=== PATIENT | female | born 1960 | race Caucasian/White ===

== ENCOUNTER → 2016-05-12 | Outpatient (CLI) | payer OTHER | LOC: YCFC.O 12:38 | PROVIDERS: ATTEND Nurse Practitioner Family | DX: K14.9 Disease of tongue, unspecified (principal); L65.9 Nonscarring hair loss, unspecified ==

== ENCOUNTER 2016-05-28 19:09 | Emergency (ER) | payer OTHER ==
[2016-05-28 19:35] VITALS: BP 114/79; TEMP 100.6
[2016-05-28] MEDS ORDERED: OSELTAMIVIR 75 MG CAP PO ONE ×2 (20:11→21:50)
[2016-05-28] MEDS ORDERED: IPRATROPIUM/ALBUTEROL 3 ML VIAL NEB ONE (20:16)
[2016-05-28] MEDS ORDERED: predniSONE 20 MG TAB PO ONE (20:16)
--- NOTE | 2016-05-28 20:27 | ED.PDOC ---
History of Present Illness - General Chief Complaint: Respiratory Problem Stated Complaint: cough and congestion [id number] Time Seen by Provider: 05/28/16 20:24 Source: patient Exam Limitations: no limitations - History of Present Illness Initial Comments: She stated that she has history of bronchial asthma and with non productive cough for 2 weeks then yesterday started having fever with cough more often despite bronchodilator with b-agonist. Severity: moderate Improving Factors: nothing Worsening Factors: nothing Associated Symptoms: cough, fever/chills Allergies/Adverse Reactions: Allergies Codeine Allergy (Mild, Verified 05/05/14 14:23) Other itching Home Medications: Ambulatory Orders Tramadol HCl 50 mg PO Q6HR PRN 01/31/13 Trazodone HCl 300 mg PO HS 01/31/13 Venlafaxine Xr [Effexor Xr] 150 mg PO DAILY 01/31/13 Fluticasone/Salmeterol 250/50 [Advair 250/50 Diskus] 1 puff INH BID 11/05/13 Estropipate 1.5 mg PO BID 02/23/14 Furosemide 40 mg PO DAILY 02/23/14 Mometasone Furoate Nasal [place] [Nasonex Nasal [place]] 1 spray BNAS BID 03/07/14 Montelukast Sodium [Singulair] 10 mg PO DAILY 03/07/14 Albuterol Inhaler [Ventolin Hfa Inhaler] 108 mcg IN PRN PRN 05/05/14 Carbamazepine [Tegretol] 400 mg PO BID 05/05/14 Multiple Vitamins W/ Minerals [Alive Womens 50+] 1 tab PO DAILY 05/05/14 Multiple Vitamins W/ Minerals [Thrive For Life Womens] 1 tab PO DAILY 05/12/15 Phentermine HCl 37.5 mg PO DAILY 05/12/15 Levofloxacin [Levaquin] 500 mg PO DAILY #5 tab 07/27/15 Cefuroxime Axetil [Ceftin] 500 mg PO BID #14 tab 05/28/16 Oseltamivir Phosphate [Tamiflu] 75 mg PO BID #10 cap 05/28/16 Tramadol HCl 50 mg PO TID PRN #20 tab 05/28/16 Review of Systems - Review of Systems Constitutional: States: fever EENTM: States: no symptoms reported Respiratory: States: cough - non productive Cardiology: States: no symptoms reported Gastrointestinal/Abdominal: States: no symptoms reported Genitourinary: States: no symptoms reported Musculoskeletal: States: joint pain Skin: States: no symptoms reported Neurological: States: no symptoms reported Endocrine: States: no symptoms reported Hematologic/Lymphatic: States: no symptoms reported Past Medical History (General) - Patient Medical History Hx Seizures: No Hx Stroke: No Hx Dementia: No Hx Asthma: Yes Hx of COPD: Yes Hx Cardiac Disorders: No Hx Congestive Heart Failure: No Hx Pacemaker: No Hx Hypertension: Yes Hx Thyroid Disease: No Hx Diabetes: No Hx Gastroesophageal Reflux: Yes Hx Renal Disease: No Hx Cancer: No Hx of HIV: No Hx Hepatitis C: No Hx MRSA: No Surgical History: tonsillectomy, Hysterectomy, other Other Surgeries:: hysterectomy - Vaccination History Hx Tetanus, Diphtheria Vaccination: No Hx Influenza Vaccination: No Hx Pneumococcal Vaccination: Yes - Social History Hx Tobacco Use: No Hx Chewing Tobacco Use: No Hx Alcohol Use: No Hx Substance Use: No Hx Substance Use Treatment: No Hx Depression: No Hx Physical Abuse: No Hx Emotional Abuse: No Hx Suspected Abuse: No - Female History Patient is a Female of Child Bearing Age (10 -59 yrs old): No Patient : No Family Medical History - Family History Father Family History: Unknown Living Status: Hx Family Congestive Heart Failure: Yes - dad Hx Family;Other: Father had a CAD; CABG Physical Exam - Physical Exam General Appearance: Alert, Comfortable, No apparent distress Eye Exam: bilateral normal Ears, Nose, Throat: hearing grossly normal, normal ENT inspection, normal pharynx Neck: non-tender, full range of motion, supple, normal inspection Respiratory: chest non-tender, lungs clear, normal breath sounds, no respiratory distress Cardiovascular/Chest: normal peripheral pulses, regular rate, rhythm, no edema, no gallop, no murmur Peripheral Pulses: radial,right: 2+, radial,left: 2+ Gastrointestinal/Abdominal: normal bowel sounds, non tender, soft, no organomegaly Back Exam: normal inspection, no CVA tenderness, no vertebral tenderness Extremity: normal range of motion, non-tender, no pedal edema, no calf tenderness Neurologic: no motor/sensory deficits, alert, normal mood/affect Skin Exam: normal color, warm/dry Progress - Progress Progress: 05/28/16 21:49 positive flu a - Results/Orders Results/Orders: 05/28/16 19:45 STREP A SCREEN CULTURE Stat 05/28/16 20:16 SVN/Updraft Therapy ONCE Laboratory Results WBC 5.7 K/mm3 (4.8-10.8) 05/28/16 20:40 RBC 4.73 M/mm3 (4.20-5.40) 05/28/16 20:40 Hgb 14.3 gm/dL (12.0-16.0) 05/28/16 20:40 Hct 43.5 % (36.0-47.0) 05/28/16 20:40 MCV 91.8 fl (81.0-99.0) 05/28/16 20:40 MCH 30.3 pg (27.0-31.0) 05/28/16 20:40 MCHC 33.0 g/dL (33.0-37.0) 05/28/16 20:40 RDW 13.2 % (11.5-14.5) 05/28/16 20:40 Plt Count 246 K/mm3 (130-400) 05/28/16 20:40 MPV 7.6 fl (7.40-10.4) 05/28/16 20:40 Absolute Neuts (auto) 3.60 K/uL (1.8-6.8) 05/28/16 20:40 Absolute Lymphs (auto) 1.50 K/uL (1.0-3.4) 05/28/16 20:40 Absolute Monos (auto) 0.50 K/uL (0.2-0.8) 05/28/16 20:40 Absolute Eos (auto) 0.10 K/uL (0.0-0.4) 05/28/16 20:40 Absolute Basos (auto) 0.10 K/uL (0.0-0.1) 05/28/16 20:40 Neutrophils % 63.7 % (42.0-78.0) 05/28/16 20:40 Lymphocytes % 25.8 % (20.0-50.0) 05/28/16 20:40 Monocytes % 8.0 % (2.0-9.0) 05/28/16 20:40 Eosinophils % 1.3 % (1.0-5.0) 05/28/16 20:40 Basophils % 1.2 % (0.0-2.0) 05/28/16 20:40 Sodium 142 mmol/L (135-145) 05/28/16 20:40 Potassium 3.7 mmol/L (3.6-5.0) 05/28/16 20:40 Chloride 110 mmol/L (101-111) 05/28/16 20:40 Carbon Dioxide 27 mmol/L (21-31) 05/28/16 20:40 Anion Gap 8.7 (12-18) L 05/28/16 20:40 BUN 16 mg/dL (7-18) 05/28/16 20:40 Creatinine 0.91 mg/dL (0.6-1.3) 05/28/16 20:40 BUN/Creatinine Ratio 17.6 (10-20) 05/28/16 20:40 Random Glucose 109 mg/dL (70-105) H 05/28/16 20:40 Serum Osmolality 284.9 mOsm/L (275-295) 05/28/16 20:40 Lactic Acid 1.6 mmol/L (0.5-2.2) 05/28/16 20:40 Calcium 8.9 mg/dL (8.4-10.2) 05/28/16 20:40 Total Bilirubin 0.5 mg/dL (0.2-1.0) 05/28/16 20:40 AST 19 IU/L (10-42) 05/28/16 20:40 ALT 19 IU/L (10-60) 05/28/16 20:40 Alkaline Phosphatase 123 IU/L (42-121) H 05/28/16 20:40 Serum Total Protein 6.8 gm/dL (6.4-8.2) 05/28/16 20:40 Albumin 3.8 g/dl (3.2-5.5) 05/28/16 20:40 Globulin 3.0 gm/dL (2.3-3.5) 05/28/16 20:40 Albumin/Globulin Ratio 1.3 (1.1-1.9) 05/28/16 20:40 - EKG/XRAY/CT XRAY: chest - no acute abnormality noted Departure - Departure Clinical Impression: Influenza A H1N1 infection, History of asthma Time of Disposition: 21:52 Disposition: Discharge to Home or Self Care Condition: Good Departure Forms: ED Discharge - Pt. Copy, Patient Portal Self Enrollment Instructions: DI for Influenza -- Adult Prescriptions: Cefuroxime Axetil [Ceftin] 500 mg PO BID #14 tab Oseltamivir Phosphate [Tamiflu] 75 mg PO BID #10 cap Tramadol HCl 50 mg PO TID PRN #20 tab PRN Reason: Pain -- Generalized Home Medications: Ambulatory Orders Tramadol HCl 50 mg PO Q6HR PRN 01/31/13 Trazodone HCl 300 mg PO HS 01/31/13 Venlafaxine Xr [Effexor Xr] 150 mg PO DAILY 01/31/13 Fluticasone/Salmeterol 250/50 [Advair 250/50 Diskus] 1 puff INH BID 11/05/13 Estropipate 1.5 mg PO BID 02/23/14 Furosemide 40 mg PO DAILY 02/23/14 Mometasone Furoate Nasal [place] [Nasonex Nasal [place]] 1 spray BNAS BID 03/07/14 Montelukast Sodium [Singulair] 10 mg PO DAILY 03/07/14 Albuterol Inhaler [Ventolin Hfa Inhaler] 108 mcg IN PRN PRN 05/05/14 Carbamazepine [Tegretol] 400 mg PO BID 05/05/14 Multiple Vitamins W/ Minerals [Alive Womens 50+] 1 tab PO DAILY 05/05/14 Multiple Vitamins W/ Minerals [Thrive For Life Womens] 1 tab PO DAILY 05/12/15 Phentermine HCl 37.5 mg PO DAILY 05/12/15 Levofloxacin [Levaquin] 500 mg PO DAILY #5 tab 07/27/15 Cefuroxime Axetil [Ceftin] 500 mg PO BID #14 tab 05/28/16 Oseltamivir Phosphate [Tamiflu] 75 mg PO BID #10 cap 05/28/16 Tramadol HCl 50 mg PO TID PRN #20 tab 05/28/16 Additional Instructions: RETURN TO EMERGENCY ROOM NEEDED;CONTINUE WITH HOME MEDICATIONS
--- NOTE | 2016-05-28 21:04 | RAD ---
EXAM DESCRIPTION: XR CHEST 1 VIEW CLINICAL HISTORY: 55-year-old female with cough. COMPARISON: 08/03/2015. TECHNIQUE: Single AP view of the chest was obtained portably. FINDINGS: The cardiac mediastinal silhouette is within normal limits. Heart size is normal. The lungs are clear without discrete focal opacity, pleural effusion or pneumothorax. The osseous structures are within normal limits. IMPRESSION: No acute cardiopulmonary abnormalities. Electronically signed by: Jaquelin Carrizales MD 05/28/2016 21:02
[2016-05-28 21:16] VITALS: O2SAT 96
[2016-05-28] MEDS ORDERED: CEFUROXIME AXETIL TAB 250 MG TAB PO ONE (21:51)
== END 2016-05-28 22:30 | disposition home or self-care (01) ==
LOC: ER 19:09
DX: J10.1 Influenza due to other identified influenza virus with other respiratory manifestations (principal); Z87.09 Personal history of other diseases of the respiratory system; J44.9 Chronic obstructive pulmonary disease, unspecified; I10 Essential (primary) hypertension; K21.9 Gastro-esophageal reflux disease without esophagitis; Z79.899 Other long term (current) drug therapy; Z88.6 Allergy status to analgesic agent; Z82.49 Family history of ischemic heart disease and other diseases of the circulatory system
CPT/HCPCS: 36415; 71010; 80053; 83605; 85025; 87070; 87502; 87651; 94640; J7512; J7620

== ENCOUNTER → 2016-09-08 | Outpatient (CLI) | payer OTHER ==
--- NOTE | 2016-09-09 10:13 | RAD ---
One view abdomen. Indication: ABDOMINAL PAIN Comparison: None. Impression: Bowel gas pattern nonspecific. No abnormal calcifications. No acute osseous abnormality. Electronically signed by: Jerry Cerda MD 09/09/2016 10:13 AM CDT
== END ==
LOC: YCFC.O 11:16
PROVIDERS: ATTEND Nurse Practitioner Family
DX: R10.9 Unspecified abdominal pain (principal)

== ENCOUNTER → 2016-09-16 | Outpatient (CLI) | payer OTHER ==
--- NOTE | 2016-09-17 05:10 | CT ---
Procedure: CT ABDOMEN PELVIS WITHOUT IV CONTRAST Exam Date: 09/16/2016 Ordering Provider: STEPHANI CEJA Clinical Indication: ADRENAL ADENOMA Comparison: 09/05/2014 TECHNIQUE: Unenhanced 5 mm images were taken through the abdomen and pelvis without the administration of oral contrast material. Coronal and sagittal reformatted images were generated. This exam was performed according to our departmental dose optimization program which includes use of automated exposure control, adjustment of the mA and/or kV according to patient size and/or use of iterative reconstruction technique. FINDINGS: Lower chest: Nonacute Abdomen: Liver and biliary system: No gross liver lesions on this noncontrast examination. No biliary ductal dilatation. No calcified gallstones. Spleen: Unremarkable Pancreas: Unremarkable Adrenal glands: Stable 1 cm lipid rich left adrenal adenoma. Right adrenal gland is unremarkable. Kidneys: No contour deforming renal lesions on this noncontrast examination. No hydronephrosis in either kidney. Lymph nodes: No lymphadenopathy. Retroperitoneum, peritoneal cavity, abdominal wall : No ascites. No free intraperitoneal air. Small fat-containing inguinal hernias bilaterally. Vessels: No abdominal aortic aneurysm. Pelvis: Lymph nodes: No lymphadenopathy Peritoneal cavity: No pelvic free fluid Bowel: No bowel obstruction. Colonic diverticulosis without evidence of diverticulitis. No findings to suggest acute appendicitis. No bowel wall thickening. Bladder: Decompressed Pelvic organs: Prior hysterectomy Bones: Nonacute IMPRESSION: 1. No acute abnormalities in the abdomen or pelvis. 2. Stable lipid rich left adrenal adenoma. 3. Colonic diverticulosis without evidence of diverticulitis. Electronically signed by: Brenton Mckinley MD 09/17/2016 5:10 AM CDT
== END | disposition home or self-care (01) ==
LOC: CT 10:06
PROVIDERS: ATTEND Internal Medicine Endocrinology, Diabetes & Metabolism
DX: D35.00 Benign neoplasm of unspecified adrenal gland (principal)

== ENCOUNTER 2016-10-06 21:06 | Emergency (ER) | payer OTHER ==
[2016-10-06 21:30] VITALS: TEMP 99.1
[2016-10-06] MEDS ORDERED: methylPREDNISolone ACETATE 80 MG/ML VIAL IM ONE (21:52)
[2016-10-06] MEDS ORDERED: KETOROLAC TROMETHAMINE INJ 60 MG/2 ML VIAL IM ONE (21:52)
--- NOTE | 2016-10-06 21:55 | ED.PDOC ---
History of Present Illness - General Chief Complaint: General Stated Complaint: left leg pain Time Seen by Provider: 10/06/16 21:34 Source: patient Exam Limitations: no limitations - History of Present Illness Initial Comments: LLE PAIN, PARESTHESIA (NUMB AND BURNING) X 2 YEARS. SEES NEURO IN [place]. PT STATES SHE HAS NOT HAD A CT OR MRI YET. WORSE W/ AMBULATION. Severity: severe Improving Factors: nothing Worsening Factors: movement Associated Symptoms: denies symptoms Allergies/Adverse Reactions: Allergies Codeine Allergy (Mild, Verified 05/05/14 14:23) Other itching Home Medications: Ambulatory Orders Tramadol HCl 50 mg PO Q6HR PRN 01/31/13 Trazodone HCl 300 mg PO HS 01/31/13 Estropipate 1.5 mg PO BID 02/23/14 Furosemide 40 mg PO DAILY 02/23/14 Mometasone Furoate Nasal [place] [Nasonex Nasal [place]] 1 spray BNAS BID 03/07/14 Montelukast [Singulair] 10 mg PO DAILY 03/07/14 Albuterol Inhaler [Ventolin Hfa Inhaler] 108 mcg IN PRN PRN 05/05/14 Tramadol HCl 50 mg PO TID PRN #20 tab 05/28/16 Mometasone Furoate-Formoterol [Dulera 100-5 Mcg/Act] 1 aer IN BID 10/06/16 methylPREDNISolone TAB [Medrol Tab] 4 mg PO DAILY #1 tab 10/07/16 Review of Systems - Review of Systems Constitutional: States: no symptoms reported EENTM: States: no symptoms reported Respiratory: States: no symptoms reported Cardiology: States: no symptoms reported Gastrointestinal/Abdominal: States: no symptoms reported Genitourinary: States: no symptoms reported Musculoskeletal: States: back pain, joint pain, muscle pain. Denies: neck pain Skin: States: no symptoms reported Neurological: States: numbness, paresthesia, tingling Endocrine: States: no symptoms reported Hematologic/Lymphatic: States: no symptoms reported All other Systems: Reviewed and Negative Past Medical History (General) - Patient Medical History Hx Seizures: No Hx Stroke: No Hx Dementia: No Hx Asthma: Yes Hx of COPD: Yes Hx Cardiac Disorders: No Hx Congestive Heart Failure: No Hx Pacemaker: No Hx Hypertension: Yes Hx Thyroid Disease: No Hx Diabetes: No Hx Gastroesophageal Reflux: Yes Hx Renal Disease: No Hx Cancer: No Hx of HIV: No Hx Hepatitis C: No Hx MRSA: No Surgical History: Hysterectomy - Vaccination History Hx Tetanus, Diphtheria Vaccination: No Hx Influenza Vaccination: Yes Hx Pneumococcal Vaccination: Yes - Social History Hx Tobacco Use: No Hx Chewing Tobacco Use: No Hx Alcohol Use: No Hx Substance Use: No Hx Substance Use Treatment: No Hx Depression: No Hx Physical Abuse: No Hx Emotional Abuse: No Hx Suspected Abuse: No - Female History Patient is a Female of Child Bearing Age (10 -59 yrs old): No - HYSTERECTOMY Patient : No Family Medical History - Family History Father Family History: Unknown Living Status: Hx Family Congestive Heart Failure: Yes - dad Hx Family;Other: Father had a CAD; CABG Physical Exam - Physical Exam General Appearance: Alert, Well Nourished Eye Exam: bilateral normal Ears, Nose, Throat: hearing grossly normal, normal ENT inspection Neck: non-tender, full range of motion Respiratory: chest non-tender, lungs clear Cardiovascular/Chest: normal peripheral pulses, regular rate, rhythm Peripheral Pulses: dorsalis pedis,right: 1+, dorsalis pedis,left: 1+, posterior tibialis,right: 1+, posterior tibialis,left: 1+ Gastrointestinal/Abdominal: normal bowel sounds, non tender Back Exam: no CVA tenderness, vertebral tenderness, other - TTP ALONG L SCIATIC NERVE DISTRIBUTION. GLUTEAL PRESSURE WORSENS HER SCIATIC PAIN. Extremity: normal inspection, no pedal edema, no calf tenderness Neurologic: manager adult II-XII nml as tested, no motor/sensory deficits, alert, oriented x 3, other - ANTALGIC GAIT. DTR: 2+: Patellar, left, Patellar, right Skin Exam: normal color, warm/dry Lymphatic: no adenopathy Progress - Progress Progress: 10/06/16 22:02 CT PENDING. CLINICALLY C/W SCIATIC LLE. ORDERING D-DIMER TO R/O THIGH DVT. 10/07/16 01:15 PAIN IMPROVED WITH TORADOL AND STEROIDS. d-dimer neg. CT LUMBAR POS FOR MULTIPLE PATHOLOGY, CAUSING THE LLE SCIATICA/ RADICULOPATHY PAINS. PT HAS TRAMADOL. SHE STATES FLEXERIL DIDN'T HELP SO I AM RX'ING MEDROL DOSE PACK. SHE IS EXCITED ABOUT MY RECOMMENDATION TO SEE PAIN MANAGEMENT TO PURSUE P.T., IJXNS, MEDICATIONS FOR RELIEF. 10/07/16 01:17 Departure - Departure Clinical Impression: Sciatica of left side associated with disorder of lumbosacral spine, Degenerative disc disease, lumbar, Bulging lumbar disc, Neural foraminal stenosis of lumbar spine, Facet arthropathy, lumbar Disposition: Discharge to Home or Self Care Condition: Good Departure Forms: ED Discharge - Pt. Copy, Patient Portal Self Enrollment Instructions: DI for Sciatica Diet: resume usual diet Activity: increase activity as tolerated Referrals: Shirin Aleman NP [Primary Care Provider] - 1-2 Weeks Prescriptions: methylPREDNISolone TAB [Medrol Tab] 4 mg PO DAILY #1 tab Home Medications: Ambulatory Orders Tramadol HCl 50 mg PO Q6HR PRN 01/31/13 Trazodone HCl 300 mg PO HS 01/31/13 Estropipate 1.5 mg PO BID 02/23/14 Furosemide 40 mg PO DAILY 02/23/14 Mometasone Furoate Nasal [place] [Nasonex Nasal [place]] 1 spray BNAS BID 03/07/14 Montelukast [Singulair] 10 mg PO DAILY 03/07/14 Albuterol Inhaler [Ventolin Hfa Inhaler] 108 mcg IN PRN PRN 05/05/14 Tramadol HCl 50 mg PO TID PRN #20 tab 05/28/16 Mometasone Furoate-Formoterol [Dulera 100-5 Mcg/Act] 1 aer IN BID 10/06/16 methylPREDNISolone TAB [Medrol Tab] 4 mg PO DAILY #1 tab 10/07/16 Additional Instructions: Your left thigh pain is from pinched nerves in your back. Please call Dr. Bernal, pain management, ([phone]) to arrange an appointment. He is in [place] but comes to the specialty clinic in [place].
--- NOTE | 2016-10-06 22:20 | CT ---
PROCEDURE: Lumbar Spine CLINICAL HISTORY: 56 years ,Female ,LLE PAIN, PARESTHESIAS X 2 YRS COMPARISON: None. TECHNIQUE: Contiguous axial images obtained through the lumbar spine without IV contrast. Coronal and sagittal reformatted images obtained. This exam was performed according to our department optimization program which includes automated exposure control, adjustment of the mA and/or kv according to patient size and/or use of iterative reconstruction technique. FINDINGS: Vertebral body alignment unremarkable. No acute lumbar spine fractures. T12-L1, L1-L2 and L2-L3 levels are essentially unremarkable. L3-4: There is mild bulging of the disc with facet arthropathy left greater than right. No significant central canal stenosis. Mild narrowing of the neural foramina. L4-5: Mild bulging of the disc and bilateral facet arthropathy right greater than left. There is flattening of the anterior aspect of the thecal sac without significant central canal stenosis. Mild neural foraminal stenosis on the left and moderate on the right. L5-S1: There is a broad-based central disc protrusion without significant central canal stenosis. Mild bilateral neural foraminal stenosis. IMPRESSION: Multilevel degenerative change without significant central canal stenosis Central broad-based disc protrusion at L5-S1 with bilateral neural foraminal narrowing but no significant central canal stenosis. Electronically signed by: Mariela Mistry 10/06/2016 10:19 PM CDT
[2016-10-07 01:23] VITALS: BP 135/79; O2SAT 93
== END 2016-10-07 01:24 | disposition home or self-care (01) ==
LOC: ER 21:06
DX: M51.16 Intervertebral disc disorders with radiculopathy, lumbar region (principal); M48.06 Spinal stenosis, lumbar region; M46.86 Other specified inflammatory spondylopathies, lumbar region; J44.9 Chronic obstructive pulmonary disease, unspecified; I10 Essential (primary) hypertension; K21.9 Gastro-esophageal reflux disease without esophagitis; Z88.6 Allergy status to analgesic agent; Z79.899 Other long term (current) drug therapy
CPT/HCPCS: 36415; 72131; 85379; J1030; J1885

== ENCOUNTER → 2016-10-31 | Outpatient (CLI) | payer OTHER | END | disposition home or self-care (01) | LOC: YCFC.O 10:57 | PROVIDERS: ATTEND Anesthesiology Pain Medicine | DX: Z79.891 Long term (current) use of opiate analgesic (principal) ==

== ENCOUNTER → 2016-11-01 | Outpatient (CLI) | payer OTHER | END | disposition home or self-care (01) | LOC: YCFC.O 08:57 | PROVIDERS: ATTEND Nurse Practitioner Family | DX: R35.0 Frequency of micturition (principal); R10.9 Unspecified abdominal pain ==

== ENCOUNTER → 2016-11-04 | Outpatient (CLI) | payer OTHER ==
--- NOTE | 2016-11-07 05:37 | CT ---
Procedure: CT ABDOMEN WITH IV CONTRAST Exam date: 11/04/2016 8:30 AM CDT Ordering Provider: Shirin Aleman Clinical Indication: Abdominal pain Comparison: 09/16/2016 Technique: Multiple axial helical CT images of the abdomen were obtained with contrast. Oral contrast was not used. Coronal and sagittal reformatted images were also obtained. This exam was performed according to our departmental dose-optimization program, which includes automated exposure control, adjustment of the mA and/or kV according to patient size and/or use of iterative reconstruction technique. Findings: Lung bases are clear and the heart apex within normal limits. No inferior mediastinal abnormality. Inferior osseous structures of the thorax are unremarkable. Stable small left adrenal adenoma. solid abdominal viscera are unremarkable. Stomach, small and large bowel are within normal limits. No peritoneal or retroperitoneal masses or adenopathy. No free fluid or pneumoperitoneum. The appendix is unremarkable. Osseous structures of the abdomen are nonacute. Impression: 1. Nonacute CT of the abdomen with IV contrast. 2. Stable left adrenal adenoma. Electronically signed by: Doni Elizabeth MD 11/07/2016 5:37 AM CDT
== END | disposition home or self-care (01) ==
LOC: CT 08:45
PROVIDERS: ATTEND Nurse Practitioner Family
DX: R10.9 Unspecified abdominal pain (principal)

== ENCOUNTER → 2017-01-24 | Outpatient (CLI) | payer OTHER | END | disposition home or self-care (01) | LOC: YCFC.O 15:15 | PROVIDERS: ATTEND Anesthesiology Pain Medicine | DX: Z79.891 Long term (current) use of opiate analgesic (principal) ==

== ENCOUNTER → 2017-05-04 | Outpatient (CLI) | payer OTHER ==
--- NOTE | 2017-05-05 07:17 | RAD ---
EXAM DESCRIPTION: Ribs,Left 3 Views CLINICAL HISTORY: CHEST WALL PAIN COMPARISON: None available FINDINGS: 3 views of the left-sided ribs show no displaced rib fracture. No left-sided airspace consolidation or pleural fluid collection. No pneumothorax. IMPRESSION: No acute findings. Electronically signed by: Nael Muhammad MD 05/05/2017 7:16 AM [facility]
== END | disposition home or self-care (01) ==
LOC: YCFC.O 15:00
DX: R07.89 Other chest pain (principal)

== ENCOUNTER → 2017-06-05 | Outpatient (CLI) | payer OTHER | LOC: CT 10:00 | PROVIDERS: ATTEND Family Medicine | DX: Z12.31 Encounter for screening mammogram for malignant neoplasm of breast (principal) ==

== ENCOUNTER 2017-06-11 13:51 | Emergency (ER) | payer OTHER ==
--- NOTE | 2017-06-11 14:10 | ED.PDOC ---
History of Present Illness - General Chief Complaint: Upper Extremity Injury Stated Complaint: Left shoulder/arm discomfort Time Seen by Provider: 06/11/17 14:07 Source: patient Exam Limitations: no limitations - History of Present Illness Initial Comments: Estelle Apodaca 56 y/o female came to ER with left shoulder unable to raise it overhead.Had Superior/labrum anterior and posterior surgery 06/05/17 in [place] undergoing PT but yesterday stated went to see primary Md and was checked to do overhead raising tried to overstretch left shoulder and did it afterwards felt pain radiating down her hand and unable to move shoulder fully.Had also fell on left shoulder outsretch hand 3 days ago but did not bother her. Occurred: yesterday Pain - Upper Extremity: moderate: Shoulder, left Method of Injury: unknown Improving Factors: nothing Worsening Factors: movement Allergies/Adverse Reactions: Allergies Codeine Allergy (Mild, Verified 06/11/17 14:09) Other itching Home Medications: Ambulatory Orders Trazodone HCl 300 mg PO BEDTIME 01/31/13 Montelukast [Singulair] 10 mg PO DAILY 03/07/14 Albuterol Inhaler [Ventolin Hfa Inhaler] 108 mcg IN PRN PRN 05/05/14 Mometasone Furoate-Formoterol [Dulera 100-5 Mcg/Act] 1 aer IN BID 10/06/16 Baclofen 20 mg PO BID #30 tab 06/11/17 Gabapentin 300 mg PO BEDTIME #30 cap 06/11/17 Mometasone Furoate Nasal [place] [Nasonex Nasal [place]] 50 mcg LAKESHIA BID 06/11/17 Topiramate [Topamax] 200 mg PO BID 06/11/17 Review of Systems - Review of Systems Constitutional: States: no symptoms reported EENTM: States: no symptoms reported Respiratory: States: no symptoms reported Cardiology: States: no symptoms reported Musculoskeletal: States: joint pain All other Systems: Reviewed and Negative, No Change from Baseline Past Medical History (General) - Patient Medical History Hx Seizures: No Hx Stroke: No Hx Dementia: No Hx Asthma: Yes Hx of COPD: Yes Hx Cardiac Disorders: No Hx Congestive Heart Failure: No Hx Pacemaker: No Hx Hypertension: Yes Hx Thyroid Disease: No Hx Diabetes: No Hx Gastroesophageal Reflux: Yes Hx Renal Disease: No Hx Cancer: No Hx of HIV: No Hx Hepatitis C: No Hx MRSA: No Surgical History: other - left shoulder,,hysterectomy - Vaccination History Hx Tetanus, Diphtheria Vaccination: No Hx Influenza Vaccination: Yes Hx Pneumococcal Vaccination: Yes - Social History Hx Tobacco Use: No Hx Chewing Tobacco Use: No Hx Alcohol Use: No Hx Substance Use: No Hx Substance Use Treatment: No Hx Depression: No Hx Physical Abuse: No Hx Emotional Abuse: No Hx Suspected Abuse: No - Female History Patient : No Family Medical History - Family History Father Family History: Unknown Living Status: Hx Family Congestive Heart Failure: Yes - dad Hx Family;Other: Father had a CAD; CABG Physical Exam - Physical Exam General Appearance: Alert, Comfortable, No apparent distress Eyes, Ears, Nose, Throat Exam: normal ENT inspection, TMs normal, pharynx normal Neck: non-tender, full range of motion, supple, normal inspection Cardiovascular/Respiratory: regular rate, rhythm, no M/R/G, normal peripheral pulses, no JVD Abdominal Exam: non-tender, no organomegaly Back Exam: no CVA tenderness, no vertebral tenderness Shoulder Exam: normal inspection, no evidence of injury, limited ROM - left shoulder on flexion internal and external rotation Elbow/Forearm Exam: normal inspection, non-tender Wrist Exam: normal inspection, non-tender Hand Exam: normal inspection, non-tender Neuro/Tendon: normal sensation, normal motor functions Mental Status: alert, oriented x 3 Skin Exam: normal color, warm/dry Progress - Progress Progress: 06/11/17 14:36 Last Vital Signs Temp 98.4 F 06/11/17 14:03 Pulse 73 06/11/17 14:03 Resp 20 06/11/17 14:03 BP 132/95 06/11/17 14:03 Pulse Ox 94 L 06/11/17 14:03 - EKG/XRAY/CT XRAY: shoulder-left:no fracture /dislocation Departure - Departure Clinical Impression: Shoulder pain, left Qualifiers: Chronicity: unspecified Qualified Code(s): M25.512 - Pain in left shoulder Time of Disposition: 15:58 Disposition: Discharge to Home or Self Care Departure Forms: ED Discharge - Pt. Copy, Patient Portal Self Enrollment Instructions: Shoulder Tendinopathy, DI for Rotator Cuff Injury Referrals: Emma Brito MD [Primary Care Provider] - 1-2 Weeks Prescriptions: Baclofen 20 mg PO BID #30 tab Gabapentin 300 mg PO BEDTIME #30 cap Home Medications: Ambulatory Orders Trazodone HCl 300 mg PO BEDTIME 01/31/13 Montelukast [Singulair] 10 mg PO DAILY 03/07/14 Albuterol Inhaler [Ventolin Hfa Inhaler] 108 mcg IN PRN PRN 05/05/14 Mometasone Furoate-Formoterol [Dulera 100-5 Mcg/Act] 1 aer IN BID 10/06/16 Baclofen 20 mg PO BID #30 tab 06/11/17 Gabapentin 300 mg PO BEDTIME #30 cap 06/11/17 Mometasone Furoate Nasal [place] [Nasonex Nasal [place]] 50 mcg LAKESHIA BID 06/11/17 Topiramate [Topamax] 200 mg PO BID 06/11/17 Additional Instructions: Follow up with primary ORTHOPEDIST in am06/12/2017
[2017-06-11] MEDS ORDERED: ORPHENADRINE CITRATE 30 MG/ML AMP IM ONE (15:10)
[2017-06-11] MEDS ORDERED: KETOROLAC TROMETHAMINE INJ 30 MG/ML VIAL IM ONE (15:10)
--- NOTE | 2017-06-11 15:39 | RAD ---
PROCEDURE: Shoulder,Left 2 or More Views Clinical History: pain Indication: Same as above Comparison: None . Technique: 3.0 views of the left shoulder were done. Findings: There is no visualization of acute fractures or dislocations involving the bones of the left shoulder joint. There is no evidence of periosteal reactions involving the bones of the shoulder joint. The adjacent acromioclavicular joint shows [id number] amount of degenerative change. The acromiohumeral distance is well-maintained . There is no evidence of rotator cuff calcific tendinitis. The visualized adjacent ribs do not show any evidence of acute bony trauma. Limited evaluation of the adjacent clavicle, scapula and the acromioclavicular joint does not show any evidence of acute bony trauma. The visualized lung licea are radiographically unremarkable. The adjacent soft tissues are radiographically unremarkable. There is no visualization of any radiopaque foreign bodies in the soft tissues. Impression: Degenerative change in the left acromioclavicular joint without any acute bony finding involving the imaged left shoulder . Place of interpretation: [id number]. Electronically signed by: Alexis Pineda MD 06/11/2017 3:39 PM [facility] Workstation: [email or web address]
[2017-06-11 16:21] VITALS: BP 128/84; TEMP 98; O2SAT 95
== END 2017-06-11 16:15 | disposition home or self-care (01) ==
LOC: ER 13:51
DX: M25.512 Pain in left shoulder (principal); J44.9 Chronic obstructive pulmonary disease, unspecified; Z98.890 Other specified postprocedural states
CPT/HCPCS: 73030; J1885; J2360

== ENCOUNTER → 2017-06-20 | Outpatient (CLI) | payer OTHER | LOC: YCFC.O 09:18 | DX: E78.5 Hyperlipidemia, unspecified (principal) ==

== ENCOUNTER 2017-09-15 16:32 | Emergency (ER) | payer OTHER ==
--- NOTE | 2017-09-15 17:30 | ED.PDOC ---
History of Present Illness - General Chief Complaint: Cardiovascular Problem Stated Complaint: dyspnea, dizziness, weight gain Time Seen by Provider: 09/15/17 17:15 Source: patient Exam Limitations: no limitations Additional Information: C/O SOB, COUGH AND PERIPHERAL EDEMA. HER PCP WAS WEANING HER OFF HER HCTZ. HE DECREASED HER TO 25MG RECENTLY HOWEVER SHE FORGOT TO TAKE IT FOR THE PAST 5 DAYS. - History of Present Illness Timing/Duration: other - 2 DAYS Severity: mild, moderate Activities at Onset: none Improving Factors: nothing Worsening Factors: nothing Associated Symptoms: cough, shortness of breath Allergies/Adverse Reactions: Allergies NO KNOWN ALLERGY Allergy (Verified 09/15/17 16:48) Home Medications: Ambulatory Orders Trazodone HCl 150 mg PO BEDTIME 01/31/13 Montelukast [Singulair] 10 mg PO DAILY 03/07/14 Albuterol Inhaler [Ventolin Hfa Inhaler] 108 mcg IN PRN PRN 05/05/14 Mometasone Furoate-Formoterol [Dulera 100-5 Mcg/Act] 1 aer IN BID 10/06/16 Mometasone Furoate Nasal [place] [Nasonex Nasal [place]] 50 mcg LAKESHIA BID 06/11/17 Topiramate [Topamax] 200 mg PO BID 06/11/17 Bupropion HCl [Wellbutrin Xl] 150 mg PO BID 09/15/17 Tiotropium [place] Monohydrate [Spiriva Respimat] 2.5 mcg IN BID 09/15/17 Review of Systems - Review of Systems Constitutional: Denies: chills, fever EENTM: States: no symptoms reported Respiratory: States: short of breath. Denies: cough, wheezing Cardiology: Denies: chest pain, palpitations, syncope Gastrointestinal/Abdominal: States: no symptoms reported Genitourinary: States: no symptoms reported Musculoskeletal: States: no symptoms reported Skin: States: other - REPORTS EDEMA TO LE AND HANDS. Neurological: States: no symptoms reported Endocrine: States: no symptoms reported Hematologic/Lymphatic: States: no symptoms reported Past Medical History (General) - Patient Medical History Hx Seizures: No Hx Stroke: No Hx Dementia: No Hx Asthma: Yes Hx of COPD: Yes Hx Cardiac Disorders: No Hx Congestive Heart Failure: No Hx Pacemaker: No Hx Hypertension: Yes Hx Thyroid Disease: No Hx Diabetes: No Hx Gastroesophageal Reflux: Yes Hx Renal Disease: No Hx Cancer: No Hx of HIV: No Hx Hepatitis C: No Hx MRSA: No Surgical History: other - Vaccination History Hx Tetanus, Diphtheria Vaccination: No Hx Influenza Vaccination: Yes Hx Pneumococcal Vaccination: Yes - Social History Hx Tobacco Use: No Hx Chewing Tobacco Use: No Hx Alcohol Use: No Hx Substance Use: No Hx Substance Use Treatment: No Hx Depression: No Hx Physical Abuse: No Hx Emotional Abuse: No Hx Suspected Abuse: No - Female History Patient : No Family Medical History - Family History Father Family History: Unknown Living Status: Hx Family Congestive Heart Failure: Yes - dad Hx Family;Other: Father had a CAD; CABG Physical Exam - Physical Exam General Appearance: Alert, No apparent distress Eyes, Ears, Nose, Throat Exam: PERRL/EOMI, normal ENT inspection Neck: non-tender, full range of motion, supple, normal inspection Respiratory: lungs clear, no respiratory distress Cardiovascular/Chest: regular rate, rhythm, no murmur Gastrointestinal/Abdominal: non tender, soft, no organomegaly Extremity: normal range of motion, other - NO OBVIOUS EDEMA OF HANDS, TR PITTING EDEMA OF LE'S Neurologic: alert, normal mood/affect Progress - Progress Progress: 09/15/17 19:51 VSS - EKG/XRAY/CT EKG: Sinus - RATE 76, NL AXIS, NL INTERVALS, LOW VOLTAGE QRS, , no ST T wave changes - NAIP, , Unchanged from - 07/27/2015 Departure - Departure Clinical Impression: Peripheral edema Hypertension Qualifiers: Hypertension type: essential hypertension Qualified Code(s): I10 - Essential ( primary) hypertension Time of Disposition: 19:56 Disposition: Discharge to Home or Self Care Condition: Good Departure Forms: ED Discharge - Pt. Copy, Patient Portal Self Enrollment Instructions: DI for Peripheral Edema -- Bilateral Referrals: Emma Brito MD [Primary Care Provider] - 1-2 Weeks Home Medications: Ambulatory Orders Trazodone HCl 150 mg PO BEDTIME 01/31/13 Montelukast [Singulair] 10 mg PO DAILY 03/07/14 Albuterol Inhaler [Ventolin Hfa Inhaler] 108 mcg IN PRN PRN 05/05/14 Mometasone Furoate-Formoterol [Dulera 100-5 Mcg/Act] 1 aer IN BID 10/06/16 Mometasone Furoate Nasal [place] [Nasonex Nasal [place]] 50 mcg LAKESHIA BID 06/11/17 Topiramate [Topamax] 200 mg PO BID 06/11/17 Bupropion HCl [Wellbutrin Xl] 150 mg PO BID 09/15/17 Tiotropium [place] Monohydrate [Spiriva Respimat] 2.5 mcg IN BID 09/15/17 Additional Instructions: RESTART YOUR HYDROCHLOROTHIAZIDE
--- NOTE | 2017-09-15 17:41 | RAD ---
EXAM: Chest,2 Views CLINICAL INDICATION: 57-year-old female with dyspnea (shortness of breath). TECHNIQUE: Two-view, PA and lateral projections of the chest were obtained. COMPARISON: Single view chest 05/28/2016. FINDINGS: Stable cardiac and mediastinal silhouette. Heart size is normal. Low lung volumes grossly clear without focal opacity, pneumothorax or pleural effusions. The visualized bones are within normal limits. IMPRESSION: No acute cardiopulmonary abnormalities. Electronically signed by: Jaquelin Carrizales MD 09/15/2017 5:40 PM CDT
[2017-09-15 20:17] VITALS: BP 112/60; TEMP 98.1; O2SAT 97
== END 2017-09-15 20:17 | disposition home or self-care (01) ==
LOC: ER 16:32
DX: I10 Essential (primary) hypertension (principal); R60.0 Localized edema; J44.9 Chronic obstructive pulmonary disease, unspecified; J45.909 Unspecified asthma, uncomplicated; K21.9 Gastro-esophageal reflux disease without esophagitis; Z79.899 Other long term (current) drug therapy

== ENCOUNTER 2017-09-22 14:46 | Emergency (ER) | payer OTHER ==
[2017-09-22 15:06] VITALS: BP 127/87; TEMP 98.5; O2SAT 98
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
== END 2017-09-22 16:07 | disposition home or self-care (01) ==
LOC: ER 14:46
DX: S43.412A Sprain of left coracohumeral (ligament), initial encounter (principal); S20.219A Contusion of unspecified front wall of thorax, initial encounter; J45.909 Unspecified asthma, uncomplicated; J44.9 Chronic obstructive pulmonary disease, unspecified; I10 Essential (primary) hypertension; K21.9 Gastro-esophageal reflux disease without esophagitis; Z79.899 Other long term (current) drug therapy; V49.49XA Driver injured in collision with other motor vehicles in traffic accident, initial encounter; Y92.410 Unspecified street and highway as the place of occurrence of the external cause

== ENCOUNTER → 2017-09-27 | Outpatient (CLI) | payer OTHER | LOC: YCFC.O 14:07 | DX: R53.83 Other fatigue (principal) ==

== ENCOUNTER → 2017-11-01 | Outpatient (CLI) | payer OTHER ==
--- NOTE | 2017-11-01 13:00 | CT ---
EXAM DESCRIPTION: CT CHEST WITH CONTRAST CT ABDOMEN WITH CONTRAST CLINICAL HISTORY: R10.9 abdominal pain COMPARISON: None Available. TECHNIQUE: CT of the abdomen is performed during IV bolus administration of routine adult dose of nonionic iodinated contrast. No oral contrast. FINDINGS: CT chest Lungs are clear. Heart is prominent with normal enhancement of cardiac chambers, aorta and pulmonary arteries. No lower cervical or supraclavicular or axillary adenopathy. No mediastinal or hilar adenopathy. Bony thorax appears intact. CT abdomen Liver is normal in size and parenchymal appearance. Normal right adrenal gland. Small nodular lesion in the left adrenal gland is consistent with adenoma 1.3 cm. Density of 8 Hounsfield units is consistent with a benign lipid rich adenoma. Spleen, pancreas, and kidneys are unremarkable. There is no lymphadenopathy, inflammation, or free fluid observed. Appendix is not seen. Few diverticula in the proximal sigmoid colon without inflammation. Lower pelvis is not included on the study. No aortic aneurysm. No calcified stones in the gallbladder. IMPRESSION: Clear chest. Small left adrenal adenoma. No acute upper abdominal process. This exam was performed according to our departmental dose-optimization program, which includes automated exposure control, adjustment of the mA and/or kV according to patient size and/or use of iterative reconstruction technique. Total DLP equals 2841.96 mGycm. Electronically signed by: Carmine Green MD 11/01/2017 12:59 PM CDT
== END ==
LOC: LAB.O 10:55
DX: R10.9 Unspecified abdominal pain (principal); S20.20XD Contusion of thorax, unspecified, subsequent encounter; I10 Essential (primary) hypertension

== ENCOUNTER → 2018-01-10 | Outpatient (CLI) | payer OTHER ==
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
== END ==
LOC: CT 08:30
PROVIDERS: ATTEND Urology
DX: R31.29 Other microscopic hematuria (principal); N20.0 Calculus of kidney; D35.00 Benign neoplasm of unspecified adrenal gland; R10.31 Right lower quadrant pain

== ENCOUNTER → 2018-02-02 | Outpatient (CLI) | payer OTHER | LOC: YCFC.O 12:06 | PROVIDERS: ATTEND Family Medicine | DX: E78.5 Hyperlipidemia, unspecified (principal) ==

== ENCOUNTER → 2018-03-21 | Outpatient (CLI) | payer OTHER | LOC: LAB.O 11:18 | PROVIDERS: ATTEND Family Medicine | DX: R41.3 Other amnesia (principal) ==

== ENCOUNTER → 2018-03-27 | Outpatient (CLI) | payer OTHER ==
--- NOTE | 2018-03-27 13:26 | MRI ---
EXAM DESCRIPTION: Brain w/wo Contrast: Magnetic Resonance Imaging. CLINICAL HISTORY: R41.3 COMPARISON: MRI scan of the brain without contrast performed at outside imaging facility on 11/03/2017. TECHNIQUE: Multiplanar, high-field MRI, multiple conventional sequences, without and with gadolinium IV contrast. No adverse reactions. Multiple axial diffusion sequences. FINDINGS: Small focal bright FLAIR and T2-weighted signal in the periventricular white matter abutting the frontal horn of the right lateral ventricle. Images 13 and 14 on the FLAIR sequences. No association with hemorrhage or enhancement.. Normal signal in the bilateral basal ganglia. No hemorrhage, no cerebral edema, no mass-effect. Normal contrast enhancement. Normal signal in the brainstem and cerebellar hemispheres. No hemorrhage, no cerebral edema, no mass-effect. Normal contrast enhancement. Concordance of the diffusion and non-diffusion sequences with no evidence of acute or subacute infarction. Cortical sulci, ventricles, and other CSF spaces, and the subdural spaces are normally configured.. No effacement or displacement. No midline shift. No extra-axial hemorrhage. Normal contrast enhancement. Normal flow signal void in the major vessels of the ruby [place], and the venous sinuses. IACs are symmetric bilaterally. Minimal fluid signal in the inferior left mastoid air cells. No mass effect in the bilateral Cerebellopontine angles. Normal contrast enhancement. Pituitary gland occupies most of the sella. Normal contrast enhancement. Base of the cerebellar tonsils is at the level of the foramen magnum. No significant abnormality noted in the paranasal sinuses. The bony calvarium is intact. IMPRESSION: 1. Focal small white matter lesion in the periventricular white matter abutting the frontal horn of the right lateral ventricle. Not seen on the prior study. Not associated with diffusion restriction, hemorrhage, mass effect, or abnormal contrast enhancement. This may represent interwell-developed none small vessel disease or chronic ischemia since the prior study. 2. Other than minimal fluid in one or 2 inferior left mastoid air cells. The remainder the study is unremarkable. No abnormality in the left mastoid air cells well seen on the prior study. Electronically signed by: Iglesia Johnson MD 03/27/2018 1:25 PM [facility]
== END ==
LOC: MRI 08:00
PROVIDERS: ATTEND Family Medicine
DX: R41.3 Other amnesia (principal)

== ENCOUNTER → 2018-03-27 | Outpatient (CLI) | payer OTHER ==
[~2018-03-27] MED LIST: IPRATROPIUM/ALBUTEROL 3 ML VIAL NEB ONE
[2018-03-27 10:15] VITALS: O2SAT 97
== END ==
LOC: RESP 09:39
PROVIDERS: ATTEND Family Medicine
DX: J45.909 Unspecified asthma, uncomplicated (principal)
CPT/HCPCS: 94010; 94060; 94640; 94760; J7620

== ENCOUNTER → 2018-04-10 | Outpatient (CLI) | payer OTHER ==
--- NOTE | 2018-04-10 17:10 | CT ---
EXAM DESCRIPTION: Abdomen/Pelvis w/wo Contrast CLINICAL HISTORY:57 years Female, ABDOMINAL PAIN Comparison: January 10, 2018 TECHNIQUE: Contiguous axial images of the abdomen and pelvis were obtained followed by reconstruction images. This exam was performed according to our departmental dose-optimization program, which includes automated exposure control, adjustment of the mA and/or kV according to patient size and/or use of iterative reconstruction technique. FINDINGS: Lung bases: Hypoventilatory changes in both lung bases. Heart: Visualized heart is within normal limits in size. Liver:Unremarkable. No focal liver lesion. Gallbladder:Unremarkable. No gallstones. No gallbladder wall thickening or pericholecystic fluid. Spleen:Unremarkable Pancreas: Pancreas is unremarkable. Adrenal glands: Small probable adenoma left adrenal gland. Kidneys/ureters:Within normal limits Bladder:Unremarkable. Pelvic organs: No acute abnormality Vascular structures: within normal limits Peritoneum: No free fluid. Lymph nodes: No abnormal lymph nodes. Stomach/small bowel/colon: Small hiatal hernia. Stomach is otherwise unremarkable. Small bowel is unremarkable. Colonic diverticulosis without evidence of diverticulitis. Retained stool throughout the colon suggestive of mild constipation. Appendix: Appendix not seen with certainty. However, no inflammatory changes or fluid seen in the pericecal region and right lower quadrantBones: No acute osseous abnormality. Soft tissues: Large fat-containing bilateral inguinal hernias.. IMPRESSION: No acute intra-abdominal abnormality. Electronically signed by: Yakov Marcus DO 04/10/2018 5:09 PM [facility]
== END ==
LOC: YCFC.O 11:52
PROVIDERS: ATTEND Family Medicine
DX: R10.9 Unspecified abdominal pain (principal)

== ENCOUNTER 2018-04-13 21:13 | Emergency (ER) | payer OTHER ==
--- NOTE | 2018-04-13 21:34 | ED.PDOC ---
History of Present Illness - General Stated Complaint: HEADACHE Time Seen by Provider: 04/13/18 21:29 Source: patient, RN notes reviewed Additional Information: 57 YEAR OLD PRESENTS WITH HEADACHE ON THE RIGHT SIDE OF THE HEAD ONSET 3 HOURS AGO ASSOCIATED WITH PHOTOPHOBIA THE PAIN IS THROBBING AND RADIATED TO THE RIGHT SIDE OF HER EAR AND NECK SHE HAS HAD SIMILAR HEAD ACHE IN THE PAST NO FEVER NO STIFFNESS OF THE NECK NO SKIN RASH NO VOMITING SHE HAS HAD MIGRAINE HEADACHES BUT THIS EPISODE SHE FEELS IS DIFFERENT SHE USED TO BE ON TOPOMAX FOR MIGRAINE PROPHYLAXIS NOT ANYMORE - History of Present Illness Timing/Duration: 4-6 hours Improving Factors: nothing Worsening Factors: nothing Associated Symptoms: denies symptoms Allergies/Adverse Reactions: Allergies NO KNOWN ALLERGY Allergy (Verified 09/15/17 16:48) Home Medications: Ambulatory Orders Trazodone HCl [Trazodone Hydrochloride] 150 mg PO BEDTIME 01/31/13 Montelukast [Singulair] 10 mg PO DAILY 03/07/14 Albuterol Inhaler [Ventolin Hfa Inhaler] 108 mcg IN PRN PRN 05/05/14 Mometasone Furoate-Formoterol [Dulera 100-5 Mcg/Act] 1 aer IN BID 10/06/16 Mometasone Furoate Nasal [place] [Nasonex Nasal [place]] 50 mcg LAKESHIA BID 06/11/17 Topiramate [Topamax] 200 mg PO BID 06/11/17 Bupropion HCl [Wellbutrin Xl] 150 mg PO BID 09/15/17 Hydrochlorothiazide 25 mg PO QDAC #15 tab 09/15/17 Tiotropium [place] Monohydrate [Spiriva Respimat] 2.5 mcg IN BID 09/15/17 Diclofenac Sodium [Diclofenac Sodium Dr] 50 mg PO BID #20 tab 09/22/17 Naproxen [EC-Naprosyn] 500 mg PO Q12HRS #30 tab 04/13/18 Naproxen [Naprosyn] 500 mg PO Q8HRS #30 tab 04/13/18 Past Medical History (General) - Patient Medical History Hx Seizures: No Hx Stroke: No Hx Dementia: No Hx Asthma: Yes Hx of COPD: Yes Hx Cardiac Disorders: No Hx Congestive Heart Failure: No Hx Pacemaker: No Hx Hypertension: Yes Hx Thyroid Disease: No Hx Diabetes: No Hx Gastroesophageal Reflux: Yes Hx Renal Disease: No Hx Cancer: No Hx of HIV: No Hx Hepatitis C: No Hx MRSA: No - Vaccination History Hx Tetanus, Diphtheria Vaccination: No Hx Influenza Vaccination: Yes Hx Pneumococcal Vaccination: Yes - Social History Hx Tobacco Use: No Hx Chewing Tobacco Use: No Hx Alcohol Use: No Hx Substance Use: No Hx Substance Use Treatment: No Hx Depression: No Hx Physical Abuse: No Hx Emotional Abuse: No Hx Suspected Abuse: No - Female History Patient : No Family Medical History - Family History Father Family History: Unknown Living Status: Hx Family Congestive Heart Failure: Yes - dad Hx Family;Other: Father had a CAD; CABG Progress - Results/Orders Results/Orders: 220 PT 0 PT WAS GIVEN 1 % LIDOCAINE TRIGGER POINT INJECTION ON THE LEFT LATERAL SIDE OF THE NECK AT THE POINTS OF TENDERNESS ELICITED BY PALPATION TOTAL AMOUNT 6 CC 2240 PT HEADACHE IS RECURRING WILL GET A CT HEAD AND GIVE TORADOL 30 MG IV 23.04 HEAD ACHE IS RESOLVED 100 % WANTS TO GO HOME Departure - Departure Clinical Impression: Headache, Migraine Time of Disposition: 23:08 Disposition: Discharge to Home or Self Care Condition: Good Diet: resume usual diet Referrals: Arthur Villarreal MD [Primary Care Provider] - 1-2 Weeks Prescriptions: Naproxen [Naprosyn] 500 mg PO Q8HRS #30 tab Naproxen [EC-Naprosyn] 500 mg PO Q12HRS #30 tab Home Medications: Ambulatory Orders Trazodone HCl [Trazodone Hydrochloride] 150 mg PO BEDTIME 01/31/13 Montelukast [Singulair] 10 mg PO DAILY 03/07/14 Albuterol Inhaler [Ventolin Hfa Inhaler] 108 mcg IN PRN PRN 05/05/14 Mometasone Furoate-Formoterol [Dulera 100-5 Mcg/Act] 1 aer IN BID 10/06/16 Mometasone Furoate Nasal [place] [Nasonex Nasal [place]] 50 mcg LAKESHIA BID 06/11/17 Topiramate [Topamax] 200 mg PO BID 06/11/17 Bupropion HCl [Wellbutrin Xl] 150 mg PO BID 09/15/17 Hydrochlorothiazide 25 mg PO QDAC #15 tab 09/15/17 Tiotropium [place] Monohydrate [Spiriva Respimat] 2.5 mcg IN BID 09/15/17 Diclofenac Sodium [Diclofenac Sodium Dr] 50 mg PO BID #20 tab 09/22/17 Naproxen [EC-Naprosyn] 500 mg PO Q12HRS #30 tab 04/13/18 Naproxen [Naprosyn] 500 mg PO Q8HRS #30 tab 04/13/18
[2018-04-13] MEDS ORDERED: fentaNYL CITRATE INJ 50 MCG/ML AMP IV ONE (21:35)
[2018-04-13] MEDS ORDERED: ONDANSETRON INJ 4 MG/2 ML VIAL IV ONE (21:35)
[2018-04-13 21:40] VITALS: TEMP 97.9; O2SAT 95
[2018-04-13] MEDS ORDERED: LIDOCAINE 1% 10 ML VIAL INJ ONE (22:16)
[2018-04-13] MEDS ORDERED: KETOROLAC TROMETHAMINE INJ 30 MG/ML VIAL ONE (22:44)
[2018-04-13] MEDS ORDERED: KETOROLAC TROMETHAMINE INJ 30 MG/ML VIAL IV ONE (22:45)
--- NOTE | 2018-04-13 23:08 | CT ---
CLINICAL HISTORY: SEVERE HEADACHE COMPARISON: None. TECHNIQUE: CT HEAD WITHOUT IV CONTRAST on 04/13/2018 10:45 PM [employer] This exam was performed according to our departmental dose-optimization program, which includes automated exposure control, adjustment of the mA and/or kV according to patient size and/or use of iterative reconstruction technique. FINDINGS: There is no acute hemorrhage, mass effect or midline shift. King-white differentiation is preserved. There is no hydrocephalus. There is mild bifrontal cerebral atrophy. There are mild patchy hypodensities within the periventricular and subcortical white matter, consistent with microangiopathic ischemic changes. The calvarium is intact. Orbits and globes are unremarkable. The paranasal sinuses are clear. Mastoid air cells are clear. IMPRESSION: No acute intracranial findings. Electronically signed by: Blayne Rosario MD 04/13/2018 11:07 PM [employer]
[2018-04-13 23:54] VITALS: BP 136/74
== END 2018-04-13 23:30 | disposition home or self-care (01) ==
LOC: ER 21:13
DX: G43.909 Migraine, unspecified, not intractable, without status migrainosus (principal); J44.9 Chronic obstructive pulmonary disease, unspecified; I10 Essential (primary) hypertension; K21.9 Gastro-esophageal reflux disease without esophagitis; Z79.899 Other long term (current) drug therapy
CPT/HCPCS: 70450; 93005; J1885; J2405; J3010

== ENCOUNTER → 2018-06-05 | Outpatient (CLI) | payer OTHER | LOC: LAB.O 16:59 | PROVIDERS: ATTEND Family Medicine | DX: M25.50 Pain in unspecified joint (principal); I10 Essential (primary) hypertension; E66.9 Obesity, unspecified ==

== ENCOUNTER 2018-06-12 21:12 | Emergency (ER) | payer OTHER ==
[2018-06-12 22:20] VITALS: O2SAT 95
--- NOTE | 2018-06-12 22:45 | RAD ---
EXAM DESCRIPTION: Wrist,Left 2 Views CLINICAL HISTORY: fell on porch COMPARISON: None. FINDINGS: 2 views of the left wrist. Normal osseous mineralization. The radius, capitate, and lunate have appropriate alignment. No acute fracture or dislocation. IMPRESSION: 1. No acute fracture or dislocation. Electronically signed by: Ash Hammond 06/12/2018 10:42 PM [facility] [place]
--- NOTE | 2018-06-12 22:47 | RAD ---
EXAM DESCRIPTION: Elbow,Left 2 Views CLINICAL HISTORY: fell on porch COMPARISON: None. FINDINGS: 2 views of the left elbow. No joint effusion. Normal osseous mineralization. Questionable cortical step-off versus marginal osteophyte of the radial head seen on AP view. IMPRESSION: 1. Possible nondisplaced fracture of the radial head. Continued follow-up recommended. Electronically signed by: Ash Hammond 06/12/2018 10:45 PM [facility]
--- NOTE | 2018-06-12 22:54 | RAD ---
EXAM DESCRIPTION: Left rib series CLINICAL HISTORY: fell on porch COMPARISON: None. FINDINGS: Single view of the chest and 2 views of the left ribs. The cardiomediastinal silhouette has normal size and contour. No consolidation, pneumothorax, or pleural effusion. Upper abdominal soft tissues are unremarkable. No left rib fractures identified. IMPRESSION: 1. No left rib fractures identified. Electronically signed by: Ash Hammond 06/12/2018 10:52 PM [facility]
--- NOTE | 2018-06-12 23:12 | ED.PDOC ---
History of Present Illness - General Chief Complaint: Trauma Stated Complaint: wrist and rib pain Time Seen by Provider: 06/12/18 23:02 Source: patient Exam Limitations: no limitations - History of Present Illness Initial Comments: FELL ON PORCH. Occurred: just prior to arrival Severity: severe Pain Location: upper extremity Method of Injury: fall Improving Factors: immobilization Worsening Factors: movement Loss of Consciousness: no loss of consciousness Associated Symptoms (Fall): denies symptoms Allergies/Adverse Reactions: Allergies NO KNOWN ALLERGY Allergy (Verified 09/15/17 16:48) Home Medications: Ambulatory Orders Trazodone HCl [Trazodone Hydrochloride] 150 mg PO BEDTIME 01/31/13 Montelukast [Singulair] 10 mg PO DAILY 03/07/14 Albuterol Inhaler [Ventolin Hfa Inhaler] 108 mcg IN PRN PRN 05/05/14 Mometasone Furoate-Formoterol [Dulera 100-5 Mcg/Act] 1 aer IN BID 10/06/16 Mometasone Furoate Nasal [place] [Nasonex Nasal [place]] 50 mcg LAKESHIA BID 06/11/17 Topiramate [Topamax] 200 mg PO BID 06/11/17 Bupropion HCl [Wellbutrin Xl] 150 mg PO BID 09/15/17 Hydrochlorothiazide 25 mg PO QDAC #15 tab 09/15/17 Tiotropium [place] Monohydrate [Spiriva Respimat] 2.5 mcg IN BID 09/15/17 Diclofenac Sodium [Diclofenac Sodium Dr] 50 mg PO BID #20 tab 09/22/17 Naproxen [EC-Naprosyn] 500 mg PO Q12HRS #30 tab 04/13/18 Naproxen [Naprosyn] 500 mg PO Q8HRS #30 tab 04/13/18 Review of Systems - Review of Systems Constitutional: States: no symptoms reported EENTM: States: no symptoms reported Respiratory: States: no symptoms reported Cardiology: States: no symptoms reported Gastrointestinal/Abdominal: States: no symptoms reported Genitourinary: States: no symptoms reported Musculoskeletal: States: joint pain, muscle pain, muscle stiffness. Denies: neck pain Skin: States: no symptoms reported Neurological: Denies: paresthesia, tremors Endocrine: States: no symptoms reported Hematologic/Lymphatic: States: no symptoms reported All other Systems: Reviewed and Negative Past Medical History (General) - Patient Medical History Hx Seizures: No Hx Stroke: No Hx Dementia: No Hx Asthma: Yes Hx of COPD: Yes Hx Cardiac Disorders: No Hx Congestive Heart Failure: No Hx Pacemaker: No Hx Hypertension: Yes Hx Thyroid Disease: No Hx Diabetes: No Hx Gastroesophageal Reflux: Yes Hx Renal Disease: No Hx Cancer: No Hx of HIV: No Hx Hepatitis C: No Hx MRSA: No Surgical History: Hysterectomy - Vaccination History Hx Tetanus, Diphtheria Vaccination: No Hx Influenza Vaccination: Yes Hx Pneumococcal Vaccination: Yes - Social History Hx Tobacco Use: No Hx Chewing Tobacco Use: No Hx Alcohol Use: No Hx Substance Use: No Hx Substance Use Treatment: No Hx Depression: No Hx Physical Abuse: No Hx Emotional Abuse: No Hx Suspected Abuse: No - Female History Patient : No Family Medical History - Family History Father Family History: Unknown Living Status: Hx Family Congestive Heart Failure: Yes - dad Hx Family;Other: Father had a CAD; CABG Physical Exam - Physical Exam General Appearance: Alert, Obvious distress Head Injury: tenderness ENT Exam: hearing grossly normal, no evidence of ENT injury Neck Exam: non-tender, full range of motion, normal alignment, normal inspection Cardiovascular/Respiratory: regular rate, rhythm, no M/R/G Gastrointestinal/Abdominal: normal bowel sounds, non tender, soft Back Exam: no CVA tenderness, no vertebral tenderness Extremity Exam: pain with movement, tenderness, other - L WRIST MILDLY PAINFUL WITH MOVEMENT. L ELBOW PAINFUL WITH MOVEMENT. L RIBS TTP. 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 L ELBOW X-RAY = POSSIBLE NONDISPLACED FRX OF RADIAL HEAD. NONDISCPLACED THUS SLING. F/U W/ DR JARQUIN TO REPEAT X-RAY TO SEE IF ACTUALLY FRX VS STRAIN. PT STATES SHE HAS A PAIN MGT CONTRACT THUS FOREGOES NARCOTIC RX. Departure - Departure Clinical Impression: Left wrist sprain Qualifiers: Encounter type: initial encounter Qualified Code(s): S63.502A - Unspecified sprain of left wrist, initial encounter Contusion of rib on left side Qualifiers: Encounter type: initial encounter Qualified Code(s): S20.212A - Contusion of left front wall of thorax, initial encounter Disposition: Discharge to Home or Self Care Condition: Good Departure Forms: ED Discharge - Pt. Copy, Patient Portal Self Enrollment Diet: resume usual diet Activity: increase activity as tolerated Referrals: Arthur Villarreal MD [Primary Care Provider] - 1-2 Weeks Home Medications: Ambulatory Orders Trazodone HCl [Trazodone Hydrochloride] 150 mg PO BEDTIME 01/31/13 Montelukast [Singulair] 10 mg PO DAILY 03/07/14 Albuterol Inhaler [Ventolin Hfa Inhaler] 108 mcg IN PRN PRN 05/05/14 Mometasone Furoate-Formoterol [Dulera 100-5 Mcg/Act] 1 aer IN BID 10/06/16 Mometasone Furoate Nasal [place] [Nasonex Nasal [place]] 50 mcg LAKESHIA BID 06/11/17 Topiramate [Topamax] 200 mg PO BID 06/11/17 Bupropion HCl [Wellbutrin Xl] 150 mg PO BID 09/15/17 Hydrochlorothiazide 25 mg PO QDAC #15 tab 09/15/17 Tiotropium [place] Monohydrate [Spiriva Respimat] 2.5 mcg IN BID 09/15/17 Diclofenac Sodium [Diclofenac Sodium Dr] 50 mg PO BID #20 tab 09/22/17 Naproxen [EC-Naprosyn] 500 mg PO Q12HRS #30 tab 04/13/18 Naproxen [Naprosyn] 500 mg PO Q8HRS #30 tab 04/13/18 Additional Instructions: Please call Dr. Jarquin's office tomorrow to schedule a follow-up. Please wear the sling and avoid use of the elbow until you follow-up with Dr. Jarquin.
[2018-06-12] MEDS ORDERED: HYDROmorphone HCL INJ 2 MG/ML VIAL IM ONE (23:17)
[2018-06-12 23:42] VITALS: BP 144/93; TEMP 97.8
== END 2018-06-12 23:42 | disposition home or self-care (01) ==
LOC: ER 21:12
DX: S63.502A Unspecified sprain of left wrist, initial encounter (principal); S20.212A Contusion of left front wall of thorax, initial encounter; M25.522 Pain in left elbow; J44.9 Chronic obstructive pulmonary disease, unspecified; I10 Essential (primary) hypertension; K21.9 Gastro-esophageal reflux disease without esophagitis; Z79.899 Other long term (current) drug therapy; W18.39XA Other fall on same level, initial encounter; Y92.89 Other specified places as the place of occurrence of the external cause
CPT/HCPCS: 71101; 73070; 73100; J1170

== ENCOUNTER → 2018-06-19 | Outpatient (CLI) | payer OTHER ==
--- NOTE | 2018-06-19 17:37 | RAD ---
EXAM DESCRIPTION: Elbow,Left 2 Views CLINICAL HISTORY: CLOSED FX OF HEAD OF LEFT RADIUS COMPARISON: 12 June 2018 TECHNIQUE: 2 views left FINDINGS: I see no bone joint or soft tissue abnormality. IMPRESSION: Normal two-view left elbow Electronically signed by: Cm Reid MD 06/19/2018 5:35 PM [facility]
--- NOTE | 2018-06-19 17:41 | RAD ---
EXAM DESCRIPTION: Ribs,Left 3 Views CLINICAL HISTORY: PLEURODYNIA COMPARISON: 12 June 2018 TECHNIQUE: 3 views FINDINGS: No pneumothorax is observed. No rib fracturing is detected. Cardiomegaly is evident without evidence of congestive heart failure. IMPRESSION: No rib fracturing is detected. Electronically signed by: Cm Reid MD 06/19/2018 5:40 PM [employer]
== END ==
LOC: RAD 16:03
PROVIDERS: ATTEND Family Medicine
DX: S52.125A Nondisplaced fracture of head of left radius, initial encounter for closed fracture (principal); R07.81 Pleurodynia

== ENCOUNTER → 2018-06-21 | Outpatient (CLI) | payer OTHER ==
--- NOTE | 2018-06-21 11:02 | RAD ---
EXAM DESCRIPTION: Elbow,Left 3 Views CLINICAL HISTORY: 57 years Female, M25.522 COMPARISON: June 19, 2018 FINDINGS: Three views of the left elbow were obtained. There is subtle cortical lucency in the radial neck concerning for nondisplaced fracture. This was not visible on the prior exam. No joint effusion. No additional fracture or malalignment. IMPRESSION: Nondisplaced radial neck fracture. Electronically signed by: Nael Muhammad MD 06/21/2018 11:00 AM [facility]
== END ==
LOC: RAD 08:53
PROVIDERS: ATTEND Orthopaedic Surgery
DX: S52.132A Displaced fracture of neck of left radius, initial encounter for closed fracture (principal)

== ENCOUNTER → 2018-08-02 | Outpatient (CLI) | payer OTHER ==
--- NOTE | 2018-08-02 12:47 | RAD ---
EXAM DESCRIPTION: Elbow,Left 3 Views CLINICAL HISTORY: 58 years Female, S52.102D COMPARISON: None available. FINDINGS: The visualized bones are well-mineralized.Previously identified radial neck fracture is not well-visualized, suggesting interval healing. The soft tissues appear grossly unremarkable. IMPRESSION: Previously identified radial neck fracture is not well-visualized, suggesting interval healing. Electronically signed by: Cristina Voss MD 08/02/2018 12:44 PM CDT
== END ==
LOC: RAD 09:07
PROVIDERS: ATTEND Orthopaedic Surgery
DX: S52.102D Unspecified fracture of upper end of left radius, subsequent encounter for closed fracture with routine healing (principal)

== ENCOUNTER → 2018-10-15 | Outpatient (CLI) | payer OTHER ==
--- NOTE | 2018-10-15 11:25 | RAD ---
EXAM DESCRIPTION: Chest,2 Views CLINICAL HISTORY: Acute Chest pain COMPARISON: None TECHNIQUE: PA/lateral FINDINGS: There is no acute appearing cardiac or pulmonary abnormality. Heart size is normal with normal pulmonary vascularity. No pleural effusion or pneumothorax. Lungs are clear with no consolidating infiltrate. Lateral view shows intact sternum and T-spine. IMPRESSION: No acute process is identified in the chest. Electronically signed by: Carmine Green MD 10/15/2018 11:23 AM CDT
== END ==
LOC: YCFC.O 10:30
PROVIDERS: ATTEND Nurse Practitioner
DX: R07.9 Chest pain, unspecified (principal)

== ENCOUNTER → 2018-11-07 | Outpatient (CLI) | payer OTHER | LOC: YCFC.O 12:30 | PROVIDERS: ATTEND Family Medicine | DX: R60.0 Localized edema (principal); R06.02 Shortness of breath; R10.9 Unspecified abdominal pain ==

== ENCOUNTER 2018-12-04 21:58 | Emergency (ER) | payer OTHER ==
[2018-12-04] MEDS ORDERED: NITROGLYCERIN 0.4 MG 25 EA TAB SL ONE ×3 (22:16→22:55)
--- NOTE | 2018-12-04 22:29 | ED.PDOC ---
History of Present Illness - General Chief Complaint: Chest Pain/NH Stated Complaint: chest pressure,nausea Time Seen by Provider: 12/04/18 22:09 Source: patient Exam Limitations: no limitations - History of Present Illness Initial Comments: patient comes in today with 2 hour history of chest pain. Patient states she was at rest when suddenly she had a pressure-like sensatin in the substernal area that stared radiating to her left arm, hand, and then down her left leg. She has a gastric ulcer and GERD but that pain has always been located in the epigastic area and does not feel like this. She has no heart history. She did take 2 325 mg aspirin prior to arrival and that did seem to help. She has no history of diabetes nor hypertension but takes a medication for cholesterol. She has distant history of smoking as a teen but never daily and not since. She was raised with 2 smokers. Patient has a family history of coronary artery disease in her father who had his first heart attack at age 51. Patient does have a history of asthma but no wheezing nor shortness of breath. She did start coughing 2 days ago. Also, she's had a severe, frontal, throbbing headache that started a couple of hours ago. She has a history of migraine headaches that was treated with Topamax and just lying in a quiet room when headaches occurred. She has not had any for some time and so is off her Topamax now. She's had no fever nor chills. She has had no diaphoresis. Patient was recently changed after a trial of a Trintellix failed she was placed back her Wellbutrin. P Timing/Duration: 1-3 hours Severity/Quality: severe, pressure Location: substernal Chest Pain Radiation: arms, other - Left leg and arm and hand Activities at Onset: rest Prior Chest Pain/Cardiac Workup: no prior chest pain, no prior cardiac workup Improving Factors: medication - Aspirin at home Worsening Factors: movement Nitro Today/Relief: 0.4 mg x 1, provided by ED Aspirin Treatment Today: 325 mg x 1, provided at home Allergies/Adverse Reactions: Allergies NO KNOWN ALLERGY Allergy (Verified 09/15/17 16:48) Home Medications: Ambulatory Orders Trazodone HCl [Trazodone Hydrochloride] 150 mg PO BEDTIME 01/31/13 Albuterol Inhaler [Ventolin Hfa Inhaler] 108 mcg IN PRN PRN 05/05/14 Mometasone Furoate-Formoterol [Dulera 100-5 Mcg/Act] 1 aer IN BID 10/06/16 Mometasone Furoate Nasal [place] [Nasonex Nasal [place]] 50 mcg LAKESHIA BID 06/11/17 Bupropion HCl [Wellbutrin Xl] 150 mg PO BID 09/15/17 Diclofenac Sodium [Diclofenac Sodium Dr] 50 mg PO BID #20 tab 09/22/17 Furosemide Tab [Lasix Tab] 40 mg PO DAILY 12/04/18 Gabapentin 12/04/18 Glycopyrrolate (Inhalation) [Lonhala Magnair Refill Ki] 12/04/18 HYDROcodone 7.5MG/APAP 325MG [[place]off 7.5/325] 1 tablet PO Q6HR PRN 12/04/18 Lidocaine 1 each TOP DAILY 12/04/18 Potassium Chloride Microencaps [Klor-Con M10] 10 meq PO DAILY 12/04/18 Pravastatin Sodium 40 mg PO DAILY 12/04/18 Vortioxetine HBr [Trintellix] 10 mg PO DAILY 12/04/18 Nitroglycerin 0.4 mg Tab [Nitrostat] 0.4 mg SL .Q5M PRN #20 tablet 12/05/18 Review of Systems - Review of Systems Constitutional: States: no symptoms reported. Denies: chills, diaphoresis, fever EENTM: States: no symptoms reported. Denies: eye pain, ear pain, nose congestion Respiratory: States: cough. Denies: short of breath, wheezing Cardiology: States: chest pain. Denies: edema, palpitations, syncope Gastrointestinal/Abdominal: States: nausea. Denies: abdominal pain, constipation, diarrhea, vomiting Genitourinary: States: no symptoms reported Musculoskeletal: States: no symptoms reported Neurological: States: headache Past Medical History (General) - Patient Medical History Hx Seizures: No Hx Stroke: No Hx Dementia: No Hx Asthma: Yes Hx of COPD: Yes Hx Cardiac Disorders: No Hx Congestive Heart Failure: No Hx Pacemaker: No Hx Hypertension: Yes Hx Thyroid Disease: No Hx Diabetes: No Hx Gastroesophageal Reflux: Yes Hx Renal Disease: No Hx Cancer: No Hx of HIV: No Hx Hepatitis C: No Hx MRSA: No Surgical History: Hysterectomy - Vaccination History Hx Tetanus, Diphtheria Vaccination: No Hx Influenza Vaccination: Yes Hx Pneumococcal Vaccination: Yes Immunizations Up to Date: Yes - Social History Hx Tobacco Use: No Hx Chewing Tobacco Use: No Hx Alcohol Use: No Hx Substance Use: No Hx Substance Use Treatment: No Hx Depression: No Hx Physical Abuse: No Hx Emotional Abuse: No Hx Suspected Abuse: No - Female History Patient : No Family Medical History - Family History Father Family History: Unknown Living Status: Hx Family Congestive Heart Failure: Yes - dad Hx Family;Other: Father had a CAD; CABG Physical Exam - Physical Exam General Appearance: Alert, Anxious, No apparent distress Eyes, Ears, Nose, Throat Exam: PERRL/EOMI, normal ENT inspection, TMs normal, pharynx normal Neck: non-tender, full range of motion, supple, normal inspection Respiratory: chest non-tender, lungs clear, normal breath sounds, no respiratory distress, decreased breath sounds Cardiovascular/Chest: normal peripheral pulses, regular rate, rhythm, no edema, no gallop, no JVD, no murmur, other - no pain to chest wall Peripheral Pulses: radial,right: 2+, radial,left: 2+ Gastrointestinal/Abdominal: normal bowel sounds, non tender, soft Extremity: normal range of motion, non-tender Neurologic: alert, oriented x 3 Progress - Progress Progress: 12/04/18 22:34 pain greatly improved and continuing to resolve after 1 nitro. Will continue with workup. 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 She has not had an episode for months and has no nitro at home. She currently has one scheduled. 12/05/18 01:23 doing well with no chest pain. patient has stress test already scheduled and second trop was normal as well. - Results/Orders Results/Orders: Patient Name: ROSIBEL SANTOS Gender: Female Date of : 1960 Referring Physician: JUAN CHAPMAN Organization: [facility] Accession Number: [id number] Requested Date: December 04, 2018 22:18 Report Status: Final Requested Procedure: 1 Procedure Description: Chest,1 View Modality: CR Findings Reporting MD: Willow Torres Fellow MD: Not available Dictation Time: [employer] Salesperson: Not available Ship Pilot Dispatcher Date: EXAM: XR Chest, 1 View CLINICAL HISTORY: The patient is 58 years old and is Female; chest pain TECHNIQUE: Frontal view of the chest. COMPARISON: Chest radiograph October 15, 2018. FINDINGS: LUNGS: Linear opacity within the left lower lobe is noted. PLEURAL SPACE: Unremarkable. No pneumothorax. HEART: The cardiac silhouette is enlarged. MEDIASTINUM: Unremarkable. BONES/JOINTS: Unremarkable. VASCULATURE: Prominence of central vasculature is present. IMPRESSION: Findings suggestive of mild venous congestion with likely left lower lobe atelectasis - EKG/XRAY/CT EKG: Sinus, no ST T wave changes, Abnormal Q waves, Unchanged from - 04/13/18 Comments: HR 81 normal axis Departure - Departure Clinical Impression: Acute angina Disposition: Discharge to Home or Self Care Condition: Good Departure Forms: ED Discharge - Pt. Copy, Patient Portal Self Enrollment Instructions: DI for Chest Pain Referrals: Arthur Villarreal MD [Primary Care Provider] - 1-2 Weeks Home Medications: Ambulatory Orders Trazodone HCl [Trazodone Hydrochloride] 150 mg PO BEDTIME 01/31/13 Albuterol Inhaler [Ventolin Hfa Inhaler] 108 mcg IN PRN PRN 05/05/14 Mometasone Furoate-Formoterol [Dulera 100-5 Mcg/Act] 1 aer IN BID 10/06/16 Mometasone Furoate Nasal [place] [Nasonex Nasal [place]] 50 mcg LAKESHIA BID 06/11/17 Bupropion HCl [Wellbutrin Xl] 150 mg PO BID 09/15/17 Diclofenac Sodium [Diclofenac Sodium Dr] 50 mg PO BID #20 tab 09/22/17 Furosemide Tab [Lasix Tab] 40 mg PO DAILY 12/04/18 Gabapentin 12/04/18 Glycopyrrolate (Inhalation) [Lonhala Magnair Refill Ki] 12/04/18 HYDROcodone 7.5MG/APAP 325MG [[place]off 7.5/325] 1 tablet PO Q6HR PRN 12/04/18 Lidocaine 1 each TOP DAILY 12/04/18 Potassium Chloride Microencaps [Klor-Con M10] 10 meq PO DAILY 12/04/18 Pravastatin Sodium 40 mg PO DAILY 12/04/18 Vortioxetine HBr [Trintellix] 10 mg PO DAILY 12/04/18 Nitroglycerin 0.4 mg Tab [Nitrostat] 0.4 mg SL .Q5M PRN #20 tablet 12/05/18 Additional Instructions: return to ER for return of symptoms, chest pain, shortness of breath. Call cardiology in am for follow up from ER appointment.
--- NOTE | 2018-12-04 22:32 | RAD ---
EXAM: XR Chest, 1 View CLINICAL HISTORY: The patient is 58 years old and is Female; chest pain TECHNIQUE: Frontal view of the chest. COMPARISON: Chest radiograph October 15, 2018. FINDINGS: LUNGS: Linear opacity within the left lower lobe is noted. PLEURAL SPACE: Unremarkable. No pneumothorax. HEART: The cardiac silhouette is enlarged. MEDIASTINUM: Unremarkable. BONES/JOINTS: Unremarkable. VASCULATURE: Prominence of central vasculature is present. IMPRESSION: Findings suggestive of mild venous congestion with likely left lower lobe atelectasis. Electronically signed by: Willow Torres MD 12/04/2018 10:30 PM CDT
[2018-12-05 00:18] VITALS: O2SAT 92
[2018-12-05 01:12] VITALS: BP 112/63
[2018-12-05 01:32] VITALS: TEMP 97.7
== END 2018-12-05 01:30 | disposition home or self-care (01) ==
LOC: ER 21:58
DX: I20.9 Angina pectoris, unspecified (principal); I10 Essential (primary) hypertension; J44.9 Chronic obstructive pulmonary disease, unspecified; K21.9 Gastro-esophageal reflux disease without esophagitis; Z79.899 Other long term (current) drug therapy; Z82.49 Family history of ischemic heart disease and other diseases of the circulatory system

== ENCOUNTER → 2018-12-10 | Outpatient (CLI) | payer OTHER | LOC: SL 20:02 | PROVIDERS: ATTEND Family Medicine | DX: G47.30 Sleep apnea, unspecified (principal) ==

== ENCOUNTER → 2019-01-30 | Outpatient (CLI) | payer OTHER ==
--- NOTE | 2019-01-30 13:49 | RAD ---
EXAM DESCRIPTION: Chest,2 Views CLINICAL HISTORY: Rib pain COMPARISON: Previous study January 30, 2019 TECHNIQUE: PA/lateral FINDINGS: There is no acute appearing cardiac or pulmonary abnormality. Heart size is prominent with normal pulmonary vascularity. No pleural effusion or pneumothorax. Lungs are clear with no consolidating infiltrate. Lateral view shows intact sternum and T-spine. IMPRESSION: Prominent heart without congestive failure. Electronically signed by: Carmine Green MD 01/30/2019 1:47 PM CDT
--- NOTE | 2019-01-30 13:51 | RAD ---
EXAM DESCRIPTION: Ribs,Left 3 Views CLINICAL HISTORY: 58 years Female, Rib pain COMPARISON: None. FINDINGS: Three x-ray images of the left ribs. No fracture. No bony destructive lesion. AP and oblique views show clear lungs. Heart is prominent. IMPRESSION: Negative for fracture. Electronically signed by: Carmine Green MD 01/30/2019 1:49 PM CDT
== END ==
LOC: RAD 12:12
PROVIDERS: ATTEND Family Medicine
DX: R07.81 Pleurodynia (principal)

== ENCOUNTER → 2019-04-10 | Outpatient (CLI) | payer OTHER | LOC: YCFC.O 11:32 | PROVIDERS: ATTEND Family Medicine | DX: R60.0 Localized edema (principal); J06.9 Acute upper respiratory infection, unspecified; N39.0 Urinary tract infection, site not specified ==

== ENCOUNTER 2019-04-15 00:49 | Emergency (ER) | payer OTHER ==
[2019-04-15] MEDS: predniSONE 20 MG TAB PO ONE (01:11)
[2019-04-15] MEDS: IBUPROFEN 200 MG TAB PO ONE (01:11)
[2019-04-15] MEDS: IPRATROPIUM/ALBUTEROL 3 ML VIAL NEB ONE (01:19)
--- NOTE | 2019-04-15 01:39 | ED.PDOC ---
History of Present Illness - General Chief Complaint: Respiratory Problem Stated Complaint: painful cough, fever Time Seen by Provider: 04/15/19 00:55 Source: patient Exam Limitations: no limitations - History of Present Illness Initial Comments: the patient's 58-year-old female presenting to the emergency room secondary to increasing cough and sore throat over the last 24 hours. She already had these problems for about a week but that he get worse over the last 24 hours. She does currently have a fever to 101. Cough is minimally productive but it is almost a croupy type cough. She does have a history of reactive airway disease. She is on multiple medications for this. Timing/Duration: 1 week Severity: moderate Improving Factors: nothing Worsening Factors: nothing Associated Symptoms: cough, malaise Allergies/Adverse Reactions: Allergies NO KNOWN ALLERGY Allergy (Verified 09/15/17 16:48) Home Medications: Ambulatory Orders Trazodone HCl [Trazodone Hydrochloride] 150 mg PO BEDTIME 01/31/13 Albuterol Inhaler [Ventolin Hfa Inhaler] 108 mcg IN PRN PRN 05/05/14 Mometasone Furoate-Formoterol [Dulera 100-5 Mcg/Act] 1 aer IN BID 10/06/16 Mometasone Furoate Nasal [place] [Nasonex Nasal [place]] 50 mcg LAKESHIA BID 06/11/17 Bupropion HCl [Wellbutrin Xl] 150 mg PO BID 09/15/17 Furosemide Tab [Lasix Tab] 40 mg PO DAILY 12/04/18 Gabapentin 12/04/18 Glycopyrrolate (Inhalation) [Lonhala Magnair Refill Ki] 12/04/18 HYDROcodone 7.5MG/APAP 325MG [[place] 7.5/325] 1 tablet PO Q6HR PRN 12/04/18 Lidocaine 1 each TOP DAILY 12/04/18 Potassium Chloride Microencaps [Klor-Con M10] 10 meq PO DAILY 12/04/18 Pravastatin Sodium 40 mg PO DAILY 12/04/18 Vortioxetine HBr [Trintellix] 10 mg PO DAILY 12/04/18 Nitroglycerin 0.4 mg Tab [Nitrostat] 0.4 mg SL .Q5M PRN #20 tablet 12/05/18 Azithromycin 500 mg PO DAILY #5 tab 04/15/19 Glycopyrrolate (Inhalation) [Lonhala Magnair Refill Ki] 04/15/19 Promethazine W/Codeine [Promethazine/Codeine] 04/15/19 Spironolactone 25 mg PO BID 04/15/19 predniSONE [Prednisone] 20 mg PO DAILY #3 tab 04/15/19 Review of Systems - Review of Systems Constitutional: States: fever, malaise EENTM: States: nose congestion Respiratory: States: cough, wheezing Cardiology: States: no symptoms reported, chest pain - with cough only Gastrointestinal/Abdominal: States: no symptoms reported Genitourinary: States: no symptoms reported Musculoskeletal: States: no symptoms reported Skin: States: no symptoms reported Neurological: States: no symptoms reported Endocrine: States: no symptoms reported Hematologic/Lymphatic: States: no symptoms reported All other Systems: No Change from Baseline Past Medical History (General) - Patient Medical History Hx Seizures: No Hx Stroke: No Hx Dementia: No Hx Asthma: Yes Hx of COPD: Yes Hx Cardiac Disorders: No Hx Congestive Heart Failure: No Hx Pacemaker: No Hx Hypertension: Yes Hx Thyroid Disease: No Hx Diabetes: No Hx Gastroesophageal Reflux: Yes Hx Renal Disease: No Hx Cancer: No Hx of HIV: No Hx Hepatitis C: No Hx MRSA: No Surgical History: Hysterectomy - Vaccination History Hx Tetanus, Diphtheria Vaccination: No Hx Influenza Vaccination: Yes Hx Pneumococcal Vaccination: Yes - Social History Hx Tobacco Use: No Hx Chewing Tobacco Use: No Hx Alcohol Use: No Hx Substance Use: No Hx Substance Use Treatment: No Hx Depression: No Hx Physical Abuse: No Hx Emotional Abuse: No Hx Suspected Abuse: No - Female History Patient is a Female of Child Bearing Age (10 -59 yrs old): No Patient : No Family Medical History - Family History Father Family History: Unknown Living Status: Hx Family Congestive Heart Failure: Yes - dad Hx Family;Other: Father had a CAD; CABG Physical Exam - Physical Exam General Appearance: Alert, No apparent distress Eye Exam: bilateral normal Ears, Nose, Throat: hearing grossly normal, nasal congestion Neck: full range of motion, supple Respiratory: no respiratory distress, no accessory muscle use, rhonchi, wheezing Cardiovascular/Chest: normal peripheral pulses, regular rate, rhythm, no edema Peripheral Pulses: radial,right: 2+, radial,left: 2+ Gastrointestinal/Abdominal: non tender, soft Rectal Exam: deferred Extremity: normal range of motion, no pedal edema, normal capillary refill Neurologic: decision support manager II-XII nml as tested, alert, normal mood/affect, oriented x 3 Skin Exam: normal color Comments: Vital Signs - 24 hr 04/15/19 04/15/19 01:00 01:24 Temperature 101.6 F H Pulse Rate 101 H Pulse Rate [ 98 H left] Respiratory 20 22 Rate Blood Pressure 152/89 [Right Arm] O2 Sat by Pulse 96 98 Oximetry Progress - Progress Progress: 04/15/19 01:39 the patient's a 58-year-old female presenting with what appears to be an acute bronchitis and laryngitis on top of her chronic asthma. While the source is most likely viral the patient will be covered for the atypical bacteria that can present like this with azithromycin. She will also be placed on 3 days of oral prednisone. Motrin can be used to control fever. She does need to do her breathing treatments for her asthma. Keep well-hydrated. Follow back up with primary care doctor in a couple of days. ER warnings were given. - Results/Orders Results/Orders: rapid flu a rapid strep are negative. Two-view chest x-ray shows no large lobar pneumonia. Departure - Departure Clinical Impression: Bronchitis, Laryngitis Disposition: Discharge to Home or Self Care Condition: Fair Departure Forms: ED Discharge - Pt. Copy, Patient Portal Self Enrollment Instructions: Acute Bronchitis, Adult (DC) Diet: regular diet Activity: increase activity as tolerated Referrals: Arthur Villareral MD [Primary Care Provider] - 1-2 Weeks Prescriptions: Azithromycin 500 mg PO DAILY #5 tab predniSONE [Prednisone] 20 mg PO DAILY #3 tab Home Medications: Ambulatory Orders Trazodone HCl [Trazodone Hydrochloride] 150 mg PO BEDTIME 01/31/13 Albuterol Inhaler [Ventolin Hfa Inhaler] 108 mcg IN PRN PRN 05/05/14 Mometasone Furoate-Formoterol [Dulera 100-5 Mcg/Act] 1 aer IN BID 10/06/16 Mometasone Furoate Nasal [place] [Nasonex Nasal [place]] 50 mcg LAKESHIA BID 06/11/17 Bupropion HCl [Wellbutrin Xl] 150 mg PO BID 09/15/17 Furosemide Tab [Lasix Tab] 40 mg PO DAILY 12/04/18 Gabapentin 12/04/18 Glycopyrrolate (Inhalation) [Lonhala Magnair Refill Ki] 12/04/18 HYDROcodone 7.5MG/APAP 325MG [[place] 7.5/325] 1 tablet PO Q6HR PRN 12/04/18 Lidocaine 1 each TOP DAILY 12/04/18 Potassium Chloride Microencaps [Klor-Con M10] 10 meq PO DAILY 12/04/18 Pravastatin Sodium 40 mg PO DAILY 12/04/18 Vortioxetine HBr [Trintellix] 10 mg PO DAILY 12/04/18 Nitroglycerin 0.4 mg Tab [Nitrostat] 0.4 mg SL .Q5M PRN #20 tablet 12/05/18 Azithromycin 500 mg PO DAILY #5 tab 04/15/19 Glycopyrrolate (Inhalation) [Lonhala Magnair Refill Ki] 04/15/19 Promethazine W/Codeine [Promethazine/Codeine] 04/15/19 Spironolactone 25 mg PO BID 04/15/19 predniSONE [Prednisone] 20 mg PO DAILY #3 tab 04/15/19 Additional Instructions: the patient's a 58-year-old female presenting with what appears to be an acute bronchitis and laryngitis on top of her chronic asthma. While the source is most likely viral the patient will be covered for the atypical bacteria that can present like this with azithromycin. She will also be placed on 3 days of oral prednisone. Motrin can be used to control fever. She does need to do her breathing treatments for her asthma. Keep well-hydrated. Follow back up with primary care doctor in a couple of days. ER warnings were given.
--- NOTE | 2019-04-15 01:42 | RAD ---
EXAM: Chest,2 Views HISTORY: Cough, sore throat COMPARISON: Chest two views 01/30/2019 TECHNIQUE: Chest two views PA and lateral FINDINGS: Heart size appears upper limits normal. Mild symmetric bilateral lower lungs/chest density most likely represents overlying breast/chest wall attenuation artifact. Visualized lower lungs show mild bilateral subsegmental atelectasis and/or scar. No significant pleural effusion or pneumothorax. No acute fracture. IMPRESSION: 1. Heart size appears upper limits normal. 2. Mild symmetric bilateral lower lungs/chest density on PA view most likely represents overlying breast/chest wall attenuation artifact. 3. Mild bilateral lower lung field subsegmental atelectasis and/or scar. Electronically signed by: Brenton Belle MD 04/15/2019 1:40 AM [employer]
[2019-04-15] MEDS: AZITHROMYCIN 250 MG TAB PO ONE (01:49)
[2019-04-15 01:54] VITALS: BP 137/92; TEMP 100.6; O2SAT 97
== END 2019-04-15 01:54 | disposition home or self-care (01) ==
LOC: ER 00:49
DX: J44.9 Chronic obstructive pulmonary disease, unspecified (principal); J04.0 Acute laryngitis; R50.9 Fever, unspecified; I10 Essential (primary) hypertension; K21.9 Gastro-esophageal reflux disease without esophagitis; Z79.899 Other long term (current) drug therapy
CPT/HCPCS: 71046; 87070; 87502; 87880; 94640; J7512; J7620; Q0144

== ENCOUNTER → 2019-05-13 | Outpatient (CLI) | payer OTHER ==
--- NOTE | 2019-05-14 08:42 | RAD ---
EXAM DESCRIPTION: Ribs,Right 3 Views CLINICAL HISTORY: PLEURODYNIA COMPARISON: 15 April 2019 TECHNIQUE: 3 views FINDINGS: Minimal atelectasis is observed in the right midlung. No rib fractures are observed. No pneumothorax is seen. IMPRESSION: No rib fracturing is detected. Electronically signed by: Cm Reid MD 05/14/2019 8:40 AM [facility]
== END ==
LOC: RAD 16:41
PROVIDERS: ATTEND Nurse Practitioner
DX: R07.81 Pleurodynia (principal)

== ENCOUNTER → 2019-10-15 | Outpatient (CLI) | payer OTHER ==
--- NOTE | 2019-10-15 12:27 | RAD ---
Study: Frontal and Lateral Radiographs of the Chest. Indication: DYSPNEA UNSPEC. Comparison: August 14, 2019 Impression: Cardiomegaly. Mild bilateral basilar atelectasis, otherwise lungs clear. No acute osseous abnormality. Electronically signed by: Jerry Cerda MD 10/15/2019 12:26 PM CDT
== END ==
LOC: LAB.O 11:37
PROVIDERS: ATTEND Family Medicine
DX: R63.5 Abnormal weight gain (principal)

== ENCOUNTER → 2019-10-30 | Outpatient (CLI) | payer OTHER ==
--- NOTE | 2019-10-30 18:01 | RAD ---
EXAM DESCRIPTION: Chest,2 Views CLINICAL HISTORY: Shortness of breath, COVID test COMPARISON: Chest radiograph dated October 15, 2019 TECHNIQUE: Two-view radiograph of the chest FINDINGS: Lung volumes are shallow with associated bronchovascular crowding. Cardiac silhouette again shows borderline cardiomegaly. Pulmonary vascularity upper limits of normal. Redemonstrated subtle linear opacities in the bilateral lung bases most likely represent atelectasis. Otherwise, lungs show no confluent infiltrates. No pleural effusion. No pneumothorax. No acute osseous abnormality. IMPRESSION: 1. Stable borderline cardiomegaly without congestive heart failure. 2. Redemonstrated subtle linear opacities bilateral lung bases most likely represent atelectasis. Otherwise, lungs show no confluent infiltrates. Electronically signed by: Cm Alcocer MD 10/30/2019 5:59 PM CDT
== END ==
LOC: YCFC.O 16:59
PROVIDERS: ATTEND Family Medicine
DX: R06.00 Dyspnea, unspecified (principal); R91.8 Other nonspecific abnormal finding of lung field; I51.7 Cardiomegaly; R50.9 Fever, unspecified; R53.81 Other malaise

== ENCOUNTER → 2020-02-06 | Outpatient (CLI) | payer OTHER | LOC: YCFC.O 11:33 | PROVIDERS: ATTEND Family Medicine | DX: Z51.81 Encounter for therapeutic drug level monitoring (principal) ==

== ENCOUNTER → 2020-02-07 | Outpatient (CLI) | payer OTHER ==
--- NOTE | 2020-02-07 12:06 | MRI ---
EXAM DESCRIPTION: Lumbar Spine w/wo Contrast CLINICAL HISTORY: LOW BACK PAIN COMPARISON: Bone window images from CT abdomen and pelvis April 10, 2018 TECHNIQUE: MRI of the lumbar spine is performed according to our usual protocol with axial and sagittal multi sequence imaging. For the postcontrast images, routine adult dose of IV gadolinium contrast was administered. FINDINGS: Sagittal T2 images reveal decreased signal intensity consistent with desiccation of the intervertebral discs at levels L2-3 through L4-5. Posterior annular bulges are not a prominent finding. No prevertebral mass or aneurysm. Lower cord and conus appear normal. Tip of the conus is behind L1-L2. Sagittal T1 images reveal benign marrow signal characteristics. High signal intensity consistent with vertebral body hemangiomas at L3 and L5 levels. Normal T1 signal intensity and appearance of the lower cord and conus. Sagittal STIR images show minimal increased signal intensity in the right pedicle of L5 suggesting mild stress reaction. Lesser changes at the right L4 pedicle as well. No paraspinous fluid collection or cystic lesion. Sagittal T1 fat-sat postcontrast images show normal enhancement of the vertebral venous plexus. Tiny enhancing focus in the dorsal annulus at L5-S1 consistent with a tear or old man discectomy defect. No surgical changes in the soft tissues are seen posteriorly however. Minimal similar changes along the posterior disc margin at L4-5. Axial T1 and T2-weighted images were obtained to evaluate the disc levels. T12-L1: No posterior annular bulge or herniation. No spinal stenosis or neural foraminal narrowing. Facets appear mildly hypertrophic. Normal appearance of the lower cord and conus. L1-2: No posterior annular bulge or herniation. No spinal stenosis or neural foraminal narrowing. Mild facet hypertrophy bilaterally. L2-3: Minimal posterior annular bulge without spinal stenosis or neural foraminal narrowing. Facets appear mildly hypertrophic. L3-4: No posterior annular bulge or herniation. No spinal stenosis or neural foraminal narrowing. Marked facet hypertrophic spurring on the left with mild right subarticular recess narrowing. L4-5: Mild diffuse posterior annular bulge with slight right posterior lateral accentuation. Sagittal images show slight extension of disc material inferiorly behind upper endplate of L5. No significant spinal stenosis mild to moderate right neural foraminal narrowing related to bulging disc material and facet hypertrophic spurring. Marked facet hypertrophic spurring right more than left with increased fluid in the right facet joint and small synovial cyst on the left 2.5 mm contributing to ligamentum flavum thickening. There is moderate right and mild left subarticular recess narrowing crowding the descending right L5 nerve root. L5-S1: No posterior annular bulge or herniation. No spinal stenosis or neural foraminal narrowing. Moderate facet hypertrophic spurring bilaterally. No lateral recess compromise. Upper sacrum appears intact. No retroperitoneal mass or aneurysm. Question left adrenal lesion 1.7 cm. Correlating with previous CT of the abdomen and pelvis from April 2018, a left adrenal adenoma was present at that time which measured 1.4 cm. Axial postcontrast T1 images with fat saturation show no abnormal enhancement of the osseous structures. No enhancing mass or abnormal enhancement of the paraspinous soft tissues. IMPRESSION: Negative for spinal stenosis or acute appearing disc herniation. Moderate diffuse posterior annular bulge at L4-5 with right subarticular recess and right neural foraminal compromise as described. Multilevel moderately severe to severe facet hypertrophic spurring. Electronically signed by: Carmine Green MD 02/07/2020 12:04 PM CDT
== END ==
LOC: MRI 07:00
PROVIDERS: ATTEND Family Medicine
DX: M51.86 Other intervertebral disc disorders, lumbar region (principal); M25.78 Osteophyte, vertebrae; R20.2 Paresthesia of skin; N39.41 Urge incontinence

== ENCOUNTER → 2020-02-19 | Outpatient (CLI) | payer OTHER ==
--- NOTE | 2020-02-20 17:12 | RAD ---
EXAM DESCRIPTION: Knee,Left Complete (accession [id number]), Knee,Right Complete (accession [id number]): CR/DR/XR. CLINICAL HISTORY: 59 years FemaleKNEE PAIN COMPARISON: Bilateral knee radiographs November 2015 TECHNIQUE: 3 views from each knee AP lateral and patellar sunrise bilateral knees. FINDINGS: Left knee-minimal loss of bone density. Medial compartment narrowed compared to the lateral compartment. Marginal spurs. Possible bony loose bodies in the inner aspect of the medial compartment. Not present on the prior study. Posterior plateau spurs. Minimal arthrosis proximal tibiofibular joint. Superior and inferior joint margins patellar spurs with superior quadriceps tendon enthesophyte. Trace suprapatellar effusion. Minimal lateral patellar shift and narrowing of the lateral patellofemoral joint. Small spur on the medial femoral trochlea, and opposing medial facet. Right knee-minimal loss of bone density. Minimal narrowing of the medial compartment compared to the lateral compartment. Tibial spine spurs. Small marginal spurs medial and lateral compartments. Minimal arthrosis proximal tibiofibular joint. Bony loose bodies posterior to the medial joint space are stable. Superior and inferior patellar joint margin spurs. IMPRESSION: Bilateral narrowing of the medial compartment compared to the lateral compartment. Loose bodies in the medial compartment of the left knee were not present on the prior study. Loose bodies and the medial compartment of the right knee were present. Slight progression of arthrosis in the bilateral knees since the prior study. No acute bony or joint margin abnormality. Electronically signed by: Iglesia Johnson MD 02/20/2020 5:10 PM CDT
== END ==
LOC: RAD 16:30
PROVIDERS: ATTEND Family Medicine
DX: M17.0 Bilateral primary osteoarthritis of knee (principal); M25.561 Pain in right knee; M25.862 Other specified joint disorders, left knee; M23.42 Loose body in knee, left knee; M23.41 Loose body in knee, right knee

== ENCOUNTER → 2020-02-25 | Outpatient (CLI) | payer OTHER | LOC: YCFC.O 12:42 | PROVIDERS: ATTEND Family Medicine | DX: Z20.828 Contact with and (suspected) exposure to other viral communicable diseases (principal) ==

== ENCOUNTER → 2020-03-13 | Outpatient (CLI) | payer OTHER ==
--- NOTE | 2020-03-14 16:14 | RAD ---
EXAM DESCRIPTION: Pelvis: CR/DR/XR CLINICAL HISTORY: pain in right hip COMPARISON: None Available. TECHNIQUE: One view AP Pelvis FINDINGS: No fracture dislocation. Minimally loss bone density. Minimal hypertrophy superior lateral right acetabulum. Hypertrophic changes on the bilateral iliac crests and greater trochanters. No fractures. Minimal arthrosis SI joints. No abnormal radiodense objects in the soft tissues or joint spaces. Pelvic vascular calcifications IMPRESSION: Joint arthrosis and bony enthesophytes is noted. Minimal loss of bone density. No acute bony abnormalities. Electronically signed by: Iglesia Johnson MD 03/14/2020 4:12 PM [facility]
== END ==
LOC: RAD 08:29
PROVIDERS: ATTEND Orthopaedic Surgery
DX: M16.11 Unilateral primary osteoarthritis, right hip (principal); M77.9 Enthesopathy, unspecified; M85.88 Other specified disorders of bone density and structure, other site

== ENCOUNTER → 2020-03-19 | Outpatient (CLI) | payer OTHER | LOC: YCFC.O 11:03 | PROVIDERS: ATTEND Family Medicine | DX: Z20.828 Contact with and (suspected) exposure to other viral communicable diseases (principal) ==

== ENCOUNTER → 2020-04-16 | Outpatient (CLI) | payer OTHER ==
--- NOTE | 2020-04-17 09:03 | CT ---
EXAM: Abdoment/Pelvis w/o Contrast INDICATION: HISTORY OF MICROSCOPIC HEMATURIA . COMPARISON: CT abdomen pelvis with and without contrast 04/10/2018, CT abdomen pelvis without contrast 09/16/2016 TECHNIQUE: CT of the abdomen and pelvis was performed without IV contrast. Multiple axial images and multiplanar reconstructions were generated. This exam was performed according to our departmental dose-optimization program, which includes automated exposure control, adjustment of the mA and/or kV according to patient size and/or use of iterative reconstruction technique. FINDINGS: Visualized chest: Scattered subsegmental atelectasis in the visualized portions of the lung bases. Heart size is within normal limits. Coronary artery atherosclerosis is noted. Liver: A 5-6 mm tiny exophytic lesion at the posterior right hepatic lobe appears to have been present since at least the examination of 09/16/2016, although more conspicuous on today's study (axial series 2 images 69-70). Gallbladder: Unremarkable appearance of the gallbladder. Pancreas: Unremarkable appearance of the pancreas. Spleen: Unremarkable appearance of the spleen. Adrenal glands: 2 cm left adrenal gland adenoma has mildly increased in size since the examination of 09/16/2016 (axial series 2 image 66). Unremarkable appearance of the right adrenal gland. Kidneys, ureters, bladder: 2 mm nonobstructing stone in the lower pole of the left kidney. Punctate 1 mm stone in the mid pole of the right kidney. No hydronephrosis. Unremarkable appearance of the visualized portions of the ureters. Unremarkable appearance of the urinary bladder. Stomach and bowel: Unremarkable appearance of the stomach. No dilated loops of small bowel. Colonic diverticulosis without evidence for acute diverticulitis. The appendix is identified and appears normal. Uterus and adnexa: The uterus is either atrophic or surgically absent. Correlate with surgical history. No adnexal mass. Peritoneum: No free fluid. No pneumoperitoneum. Lymph nodes: No lymphadenopathy. Vasculature: Moderate scattered calcified atherosclerotic plaque in the abdomen and pelvis. Bones: No acute fracture. No destructive osseous lesion. Degenerative changes in the spine and hips. Body wall: Bilateral fat-containing inguinal hernias are noted. Tiny fat-containing umbilical hernia. Otherwise unremarkable appearance of the body wall and remainder of the visualized soft tissues. IMPRESSION: 1. Tiny 1-2 mm bilateral nonobstructing renal stones. 2. Colonic diverticulosis without evidence for acute diverticulitis. 3. 2 cm left adrenal gland adenoma. 4. A 5-6 mm tiny exophytic lesion at the posterior right hepatic lobe appears to have been present since at least the examination of 09/16/2016, although more conspicuous on today's study. Although indeterminate, this is favored to be benign. 5. Additional findings as described above. Electronically signed by: Kate Joseph MD 04/17/2020 9:01 AM [facility]
== END ==
LOC: CT 09:26
PROVIDERS: ATTEND Urology
DX: N20.0 Calculus of kidney (principal); K57.30 Diverticulosis of large intestine without perforation or abscess without bleeding; K40.20 Bilateral inguinal hernia, without obstruction or gangrene, not specified as recurrent; K42.9 Umbilical hernia without obstruction or gangrene; D35.02 Benign neoplasm of left adrenal gland; K76.9 Liver disease, unspecified; M16.0 Bilateral primary osteoarthritis of hip; M47.9 Spondylosis, unspecified

== ENCOUNTER → 2020-05-06 | Outpatient (CLI) | payer OTHER | LOC: YCFC.O 11:53 | PROVIDERS: ATTEND Family Medicine | DX: Z20.828 Contact with and (suspected) exposure to other viral communicable diseases (principal) ==

== ENCOUNTER → 2020-06-05 | Outpatient (CLI) | payer OTHER | LOC: YCFC.O 11:03 | PROVIDERS: ATTEND Family Medicine | DX: Z11.59 Encounter for screening for other viral diseases (principal) ==

== ENCOUNTER → 2020-06-16 | Outpatient (CLI) | payer OTHER ==
--- NOTE | 2020-06-16 13:40 | RAD ---
EXAM DESCRIPTION: Chest,2 Views CLINICAL HISTORY: 59 years Female, DYSPNEA COMPARISON: October 30, 2019 FINDINGS: 2 views/radiographs Heart size and pulmonary vessels are within normal limits. There is no pneumothorax or pleural effusion. Similar linear left basilar volume loss. No focal consolidation. The soft tissues are unremarkable. No acute osseous findings. IMPRESSION: No acute cardiopulmonary abnormality. Electronically signed by: Blu Gonzalez MD 06/16/2020 1:39 PM SHIPPING COORDINATOR
== END ==
LOC: YCFC.O 10:26
PROVIDERS: ATTEND Family Medicine
DX: R07.9 Chest pain, unspecified (principal); R06.00 Dyspnea, unspecified; Z11.59 Encounter for screening for other viral diseases; R19.7 Diarrhea, unspecified

== ENCOUNTER 2020-06-20 16:39 | Emergency (ER) | payer OTHER ==
[2020-06-20] MEDS ORDERED: MORPHINE SULFATE INJ 10 MG/ML VIAL IV ONE (17:09)
[2020-06-20] MEDS ORDERED: DICYCLOMINE HCL INJ 20 MG/2 ML AMP IM ONE (17:09)
[2020-06-20] MEDS ORDERED: SODIUM CHLORIDE 0.9% 1000ML 1,000 ML IVS PRN (17:09)
[2020-06-20] MEDS ORDERED: ONDANSETRON INJ 4 MG/2 ML VIAL IV ONE (17:09)
[2020-06-20] MEDS ORDERED: SODIUM CHLORIDE 0.9% (FLUSH) 10 ML SYG IV PRN (17:09)
--- NOTE | 2020-06-20 17:16 | RAD ---
EXAM: Chest,1 View CLINICAL INDICATION: Cough COMPARISON: 06/16/2020 FINDINGS: A single view of the chest was obtained. The heart size is normal. The pulmonary vascularity is unremarkable. The lungs are clear. There is no consolidation, infiltrate, pleural effusion, or pneumothorax. IMPRESSION: No evidence of active pulmonary disease. Electronically signed by: Randell Isabel MD 06/20/2020 5:15 PM CLINICAL EDUCATION COORDINATOR
--- NOTE | 2020-06-20 18:12 | ED.PDOC ---
History of Present Illness - General Chief Complaint: General Stated Complaint: SOB, CP, diarrhea, epigastric pain Time Seen by Provider: 06/20/20 16:45 Source: patient Exam Limitations: no limitations - History of Present Illness Initial Comments: This is a 59-year-old female presenting to emergency department with cough, chest pain, shortness of breath, upper abdominal pain, diarrhea. Cough and chest pain began 2 to 3 days ago, diarrhea has been ongoing for several days. She has a history of relapsing and remitting diarrhea of uncertain etiology. She had a normal colonoscopy several years ago, but was never given a specific diagnosis regarding her diarrhea. 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 She reports rectal bleeding after episodes of diarrhea. Her primary care doctor has ordered outpatient stool studies, but patient states she has never been able to capture diarrheal stools when the studies are ordered. No recent antibiotic use. She denies any fever. She did have a Covid contact several months ago, her tested positive for covid- 19 3 months ago. She has subsequently been tested several times and is always tested negative. No new contacts that she is aware of.She is scheduled for gastric sleeve surgery in [place] in the next few months. She had a abdominal ultrasound several months ago showing gallstones. She denies any nausea or vomiting. Allergies/Adverse Reactions: Allergies NO KNOWN ALLERGY Allergy (Verified 06/20/20 17:10) Home Medications: Ambulatory Orders Trazodone HCl [Trazodone Hydrochloride] 150 mg PO BEDTIME 01/31/13 Albuterol Inhaler [Ventolin Hfa Inhaler] 108 mcg IN PRN PRN 05/05/14 Mometasone Furoate-Formoterol [Dulera 100-5 Mcg/Act] 1 aer IN BID 10/06/16 Mometasone Furoate Nasal [place] [Nasonex Nasal [place]] 50 mcg LAKESHIA BID 06/11/17 Bupropion HCl [Wellbutrin Xl] 150 mg PO BID 09/15/17 Furosemide Tab [Lasix Tab] 40 mg PO DAILY 12/04/18 Gabapentin 12/04/18 Glycopyrrolate (Inhalation) [Lonhala Magnair Refill Ki] 12/04/18 HYDROcodone 7.5MG/APAP 325MG [[place] 7.5/325] 1 tablet PO Q6HR PRN 12/04/18 Lidocaine 1 each TOP DAILY 12/04/18 Potassium Chloride Microencaps [Klor-Con M10] 10 meq PO DAILY 12/04/18 Pravastatin Sodium 40 mg PO DAILY 12/04/18 Vortioxetine HBr [Trintellix] 10 mg PO DAILY 12/04/18 Nitroglycerin 0.4 mg Tab [Nitrostat] 0.4 mg SL .Q5M PRN #20 tablet 12/05/18 Azithromycin 500 mg PO DAILY #5 tab 04/15/19 Glycopyrrolate (Inhalation) [Lonhala Magnair Refill Ki] 04/15/19 Promethazine W/Codeine [Promethazine/Codeine] 04/15/19 Spironolactone 25 mg PO BID 04/15/19 predniSONE [Prednisone] 20 mg PO DAILY #3 tab 04/15/19 Benzonatate Perles [Tessalon Perles] 100 mg PO Q6H PRN 7 Days #20 cap 06/20/20 Hyoscyamine Sulfate [Levsin] 0.125 - 0.25 mg PO Q6H PRN #20 tab 06/20/20 Ondansetron Odt [Zofran ODT] 4 - 8 mg PO Q6H PRN #15 tab 06/20/20 Review of Systems - Review of Systems Constitutional: States: chills, fever - Subjective EENTM: Denies: nose pain, throat pain, mouth pain Respiratory: States: cough, short of breath. Denies: wheezing Cardiology: States: chest pain. Denies: edema, other Gastrointestinal/Abdominal: States: abdominal pain, diarrhea, nausea. Denies: constipation, vomiting Genitourinary: Denies: dysuria, hematuria, pain Musculoskeletal: States: back pain, muscle pain - Diffuse myalgias. Denies: joint pain Skin: Denies: lesions, rash Neurological: Denies: headache, paresthesia Endocrine: States: no symptoms reported Hematologic/Lymphatic: States: no symptoms reported Past Medical History (General) - Patient Medical History Hx Seizures: No Hx Stroke: No Hx Dementia: No Hx Asthma: Yes Hx of COPD: Yes Hx Cardiac Disorders: No Hx Congestive Heart Failure: No Hx Pacemaker: No Hx Hypertension: No Hx Thyroid Disease: No Hx Diabetes: No Hx Gastroesophageal Reflux: Yes Hx Renal Disease: No Hx Cancer: No Hx of HIV: No Hx Hepatitis C: No Hx MRSA: No Surgical History: tonsillectomy, Hysterectomy, other - Vaccination History Hx Tetanus, Diphtheria Vaccination: No Hx Influenza Vaccination: Yes Hx Pneumococcal Vaccination: Yes - Social History Hx Tobacco Use: Yes Hx Chewing Tobacco Use: No Hx Alcohol Use: Yes Hx Substance Use: No Hx Substance Use Treatment: No Hx Depression: No Hx Physical Abuse: No Hx Emotional Abuse: No Hx Suspected Abuse: No - Female History Patient is a Female of Child Bearing Age (10 -59 yrs old): Yes Patient : No - Hyst Family Medical History - Family History Father Family History: Unknown Living Status: Hx Family Congestive Heart Failure: Yes - dad Hx Family;Other: Father had a CAD; CABG Physical Exam - Physical Exam General Appearance: Alert, Anxious, Obese Eye Exam: bilateral normal Ears, Nose, Throat: normal ENT inspection Neck: full range of motion, supple Respiratory: chest non-tender, lungs clear, normal breath sounds, no respiratory distress Cardiovascular/Chest: normal peripheral pulses, regular rate, rhythm, no edema Peripheral Pulses: radial,right: 2+, radial,left: 2+, dorsalis pedis,right: 2+, dorsalis pedis,left: 2+ Gastrointestinal/Abdominal: soft, tenderness - Diffuse abdominal tenderness, obese abdomen Back Exam: normal inspection, no CVA tenderness, no vertebral tenderness Extremity: normal range of motion, non-tender, normal inspection Neurologic: no motor/sensory deficits, alert, normal mood/affect, oriented x 3 Skin Exam: normal color, warm/dry Progress - Progress Progress: 06/20/20 18:42 Rechecked. Discussed lab, x-ray, CT findings. Patient states pain is improving. She has an appointment with PCP on 06/23/2020, recommended she keep that appointment. Will place order for stool studies to be collected at home and brought back to the hospital for PCP to follow-up on in office. Strict warnings given to return the emergency room for worsening pain, intractable vomiting, shortness of breath, high fevers, or any other concerns DDx: Covid versus other viral infection, irritable bowel syndrome, bowel obstruction, infectious versus inflammatory colitis, inflammatory bowel disease MDM: Patient presenting with cough, chest pain, shortness of breath, subjective fevers, body aches, abdominal pain, diarrhea, etiology is unclear. Covid test is negative. Multiple previous Covid tests recently. Chest x-ray is clear, CT abdomen shows no acute process. She has a slight leukocytosis of 12,000, otherwise normal labs. Her vital signs are normal. Afebrile in the emergency department. Recommended she follow-up with PCP in 3 days as scheduled. Will treat symptomatically. Ziad NadiaNehemias Grande DO [facility] #[id number] - Results/Orders Results/Orders: EKG reviewed personally by me at 1658. Normal sinus rhythm, rate of 80, normal axis, normal intervals, no ST segment elevations or depressions. CT ABDOMEN PELVIS WITH IV CONTRAST HISTORY: Abdominal pain. Bloody stools and diarrhea. COMPARISON: 04/16/2020 TECHNIQUE: CT scan of the abdomen and pelvis was performed with IV contrast. This exam was performed according to our departmental dose-optimization program, which includes automated exposure control, adjustment of the mA and/or kV according to patient size and/or use of iterative reconstruction technique. FINDINGS: The lung bases are clear. No pleural or pericardial effusions. There is no hiatal hernia. The liver, spleen, pancreas, gallbladder, right adrenal gland, and kidneys are unremarkable. There is a 1.8 cm lipid rich left adrenal adenoma. There is a tiny nonobstructing stone in the left kidney but no hydronephrosis. There has been a prior hyste rectomy. The stomach and duodenum are unremarkable. The small bowel is normal without evidence of inflammation or obstruction. The appendix is not visualized. There is no evidence of acute diverticulitis. No intraperitoneal adenopathy, free fluid, or free air is identified. The aorta is normal caliber and contains atherosclerotic calcifications. There is no abnormal body wall hernia is seen. The bony structures are preserved. IMPRESSION: 1. No acute abdominal or pelvic findings. 2. Tiny nonobstructing left renal stone. Electronically signed by: Karl Noel MD 06/20/2020 6:36 PM THREADING MACHINE TENDER EXAM: Chest,1 View CLINICAL INDICATION: Cough COMPARISON: 06/16/2020 FINDINGS: A single view of the chest was obtained. The heart size is normal. The pulmonary vascularity is unremarkable. The lungs are clear. There is no consolidation, infiltrate, pleural effusion, or pneumothorax. IMPRESSION: No evidence of active pulmonary disease. Electronically signed by: Randell Isabel MD 06/20/2020 5:15 PM THREADING MACHINE TENDER 06/20/20 17:00 EKG STAT 06/20/20 17:09 Sodium Chloride 0.9% (Flush) [Saline Flush Syringe] 10 ml IV PRN PRN Sodium Chloride 0.9% 1000ML [Ns 1000 ml] 1,000 ml IVS .QD URINALYSIS Stat 06/20/20 17:10 Hold Metformin x 48Hrs [id number] Laboratory Results - last 24 hr 06/20/20 06/20/20 06/20/20 17:25 17:25 17:25 WBC 12.8 H RBC 4.49 Hgb 13.9 Hct 42.2 MCV 94.0 MCH 30.9 MCHC 32.8 L RDW 14.4 Plt Count 347 MPV 6.8 L Absolute Neuts (auto) 9.40 H Absolute Lymphs (auto) 2.20 Absolute Monos (auto) 0.90 H Absolute Eos (auto) 0.20 Absolute Basos (auto) 0.10 Neutrophils % 73.6 Lymphocytes % 17.4 L Monocytes % 6.8 Eosinophils % 1.4 Basophils % 0.8 Sodium 141 Potassium 3.6 Chloride 105 Carbon Dioxide 28 Anion Gap 11.6 L BUN 19 H Creatinine 1.01 BUN/Creatinine Ratio 18.8 Random Glucose 84 Serum Osmolality 282.7 Calcium 8.7 Total Bilirubin 0.4 Direct Bilirubin < 0.1 Indirect Bilirubin 0.3 AST 18 ALT 25 Alkaline Phosphatase 105 Serum Total Protein 6.5 Albumin 3.6 Lipase 33 COVID 19 swab negative Departure - Departure Clinical Impression: Acute viral bronchitis, Diarrhea of presumed infectious origin Disposition: Discharge to Home or Self Care Condition: Good Departure Forms: ED Discharge - Pt. Copy, Patient Portal Self Enrollment Instructions: Diarrhea in Adolescents and Adults, Viral Upper Respiratory Infection, Adult (DC) Referrals: Estela Villalta MD [Primary Care Provider] - 1-5 Days Prescriptions: Hyoscyamine Sulfate [Levsin] 0.125 - 0.25 mg PO Q6H PRN #20 tab PRN Reason: Abdominal Cramping Benzonatate Perles [Tessalon Perles] 100 mg PO Q6H PRN 7 Days #20 cap PRN Reason: Cough Ondansetron Odt [Zofran ODT] 4 - 8 mg PO Q6H PRN #15 tab PRN Reason: Nausea Home Medications: Ambulatory Orders Trazodone HCl [Trazodone Hydrochloride] 150 mg PO BEDTIME 01/31/13 Albuterol Inhaler [Ventolin Hfa Inhaler] 108 mcg IN PRN PRN 05/05/14 Mometasone Furoate-Formoterol [Dulera 100-5 Mcg/Act] 1 aer IN BID 10/06/16 Mometasone Furoate Nasal [place] [Nasonex Nasal [place]] 50 mcg LAKESHIA BID 06/11/17 Bupropion HCl [Wellbutrin Xl] 150 mg PO BID 09/15/17 Furosemide Tab [Lasix Tab] 40 mg PO DAILY 12/04/18 Gabapentin 12/04/18 Glycopyrrolate (Inhalation) [Lonhala Magnair Refill Ki] 12/04/18 HYDROcodone 7.5MG/APAP 325MG [[place] 7.5/325] 1 tablet PO Q6HR PRN 12/04/18 Lidocaine 1 each TOP DAILY 12/04/18 Potassium Chloride Microencaps [Klor-Con M10] 10 meq PO DAILY 12/04/18 Pravastatin Sodium 40 mg PO DAILY 12/04/18 Vortioxetine HBr [Trintellix] 10 mg PO DAILY 12/04/18 Nitroglycerin 0.4 mg Tab [Nitrostat] 0.4 mg SL .Q5M PRN #20 tablet 12/05/18 Azithromycin 500 mg PO DAILY #5 tab 04/15/19 Glycopyrrolate (Inhalation) [Lonhala Magnair Refill Ki] 04/15/19 Promethazine W/Codeine [Promethazine/Codeine] 04/15/19 Spironolactone 25 mg PO BID 04/15/19 predniSONE [Prednisone] 20 mg PO DAILY #3 tab 04/15/19 Benzonatate Perles [Tessalon Perles] 100 mg PO Q6H PRN 7 Days #20 cap 06/20/20 Hyoscyamine Sulfate [Levsin] 0.125 - 0.25 mg PO Q6H PRN #20 tab 06/20/20 Ondansetron Odt [Zofran ODT] 4 - 8 mg PO Q6H PRN #15 tab 06/20/20 Additional Instructions: Outpatient order for stool studies has been placed. Bring stool sample to the lab when you are able to collect it, and your primary care doctor can follow-up on the results. Drink plenty fluids. Follow bland diet for now, advance diet as tolerated. Return to emergency room immediately for high fevers, worsening abdominal pain, increasing blood in stool, intractable vomiting, or any other concerns peer
--- NOTE | 2020-06-20 18:37 | CT ---
CT ABDOMEN PELVIS WITH IV CONTRAST HISTORY: Abdominal pain. Bloody stools and diarrhea. COMPARISON: 04/16/2020 TECHNIQUE: CT scan of the abdomen and pelvis was performed with IV contrast. This exam was performed according to our departmental dose-optimization program, which includes automated exposure control, adjustment of the mA and/or kV according to patient size and/or use of iterative reconstruction technique. FINDINGS: The lung bases are clear. No pleural or pericardial effusions. There is no hiatal hernia. The liver, spleen, pancreas, gallbladder, right adrenal gland, and kidneys are unremarkable. There is a 1.8 cm lipid rich left adrenal adenoma. There is a tiny nonobstructing stone in the left kidney but no hydronephrosis. There has been a prior hysterectomy. The stomach and duodenum are unremarkable. The small bowel is normal without evidence of inflammation or obstruction. The appendix is not visualized. There is no evidence of acute diverticulitis. No intraperitoneal adenopathy, free fluid, or free air is identified. The aorta is normal caliber and contains atherosclerotic calcifications. There is no abnormal body wall hernia is seen. The bony structures are preserved. IMPRESSION: 1. No acute abdominal or pelvic findings. 2. Tiny nonobstructing left renal stone. Electronically signed by: Karl Noel MD 06/20/2020 6:36 PM ENERGY DERIVATIVES TRADER
[2020-06-20 19:20] VITALS: O2SAT 95
[2020-06-20 19:30] VITALS: BP 132/76; TEMP 97.6
== END 2020-06-20 19:30 | disposition home or self-care (01) ==
LOC: ER 16:39
DX: J44.0 Chronic obstructive pulmonary disease with (acute) lower respiratory infection (principal); J20.8 Acute bronchitis due to other specified organisms; R19.7 Diarrhea, unspecified; K62.5 Hemorrhage of anus and rectum; M79.10 Myalgia, unspecified site; K21.9 Gastro-esophageal reflux disease without esophagitis; Z20.822 Contact with and (suspected) exposure to COVID-19; Z79.899 Other long term (current) drug therapy
CPT/HCPCS: 36415; 71045; 74177; 80048; 80076; 81001; 83690; 85025; 87635; 93005; J0500; J2270; J2405; J7030